=== PATIENT | female | born 1985 | race Caucasian/White ===

== ENCOUNTER 2019-11-20 13:55 | Emergency (ER) | payer OTHER, SELFPAY ==
[2019-11-20 14:22] VITALS: BP 93/67; PULSE 86; RESP 16; TEMP 37.8; O2SAT 100
--- NOTE | 2019-11-20 15:00 | ED.BACK ---
HPI - Back Pain/Injury General Chief Complaint: Back Pain/Injury Stated Complaint: upper back pain Time Seen by Provider: 11/20/19 15:00 Source: patient Mode of arrival: ambulatory Limitations: no limitations History of Present Illness HPI Narrative: Lyssa Kaufman is a 34 yo female with upper back problem for 2-3 days - denies injury. Had a cough 10 days ago that has improved but in past few days upper back was sore with moving and twisting side to side Related Data Home Medications Medication Instructions Recorded Confirmed hydroxyzine HCl 11/20/19 sertraline mg 11/20/19 Allergies Allergy/AdvReac Type Severity Reaction Status Date / Time No Known Allergies Allergy Verified 08/16/14 18:44 Review of Systems Review of Systems: Narrative: CONSTITUTIONAL: Denies fever, chills, sweats. EYES: Denies visual changes, redness, discharge. ENT: Denies rhinorrhea, congestion, sore throat, otalgia. CARDIOVASCULAR: Denies chest pain, palpitations, edema. RESPIRATORY: Denies dyspnea, wheezing, cough GASTROINTESTINAL: Denies abdominal pain, nausea, vomiting, diarrhea. GENITOURINARY: Denies dysuria, hematuria, abnormal discharge SKIN: Denies rash or itching. NEUROLOGIC: Denies numbness, or focal weakness. PSYCHIATRIC: Denies anxiety or depression. Upper back pain PMFSH Family History Family History Other No active medical problems Social History Social History Smoking status: Current every day smoker Alcohol intake: current Comments At time of signature, I agree with nursing past medical, surgical, social and family history. There is no relevant family history pertinent to the presenting complaint. Exam Narrative: Exam Narrative: GENERAL: This is a well-nourished, well-developed patient, in mild distress. HEAD: normocephalic, atraumatic. EYES: Sclera clear/white. Vision is grossly intact. EARS: External ears normal, auditory canals clear and without drainage, TMs normal without perforation. Hearing grossly intact. NOSE: External nose normal without nasal discharge, nares without redness, no rhinorrhea. THROAT: Mucous membranes moist, NECK: Neck supple, CARDIOVASCULAR: Regular rate and rhythm without murmurs, gallops, or rubs. RESPIRATORY: Coarse to auscultation. Breath sounds equal bilaterally. No wheezes, rales, or rhonchi.Mid back tenderness GASTROINTESTINAL: Abdomen soft, SKIN: warm, intact with no suspicious lesions or rash, good texture and turgor. NEURO: awake, alert, and oriented to person, place and time. There were no obvious focal neurologic abnormalities. Steady gait EXTREMITIES: Normal range of motion. 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 Started on high-dose ibuprofen and baclofen, albuterol inhaler to be used 3 times daily as needed Follow-up with PCP Vital Signs Vital signs: Vital Signs Temperature 100.0 F H 11/20/19 14:22 Pulse Rate 86 11/20/19 14:22 Respiratory Rate 16 11/20/19 14:22 Blood Pressure 93/67 L 11/20/19 14:22 Pulse Oximetry 100 11/20/19 14:22 Temperature 100.0 F H 11/20/19 14:22 Pulse Rate 86 11/20/19 14:22 Respiratory Rate 16 11/20/19 14:22 Blood Pressure 93/67 L 11/20/19 14:22 Pulse Oximetry 100 11/20/19 14:22 MDM - Back Pain/Injury Differential Diagnosis Differential diagnosis: Likely other (Costochondritis vs viral syndrome vs thoracic muscle pain) Discharge Plan Discharge Clinical Impression: Acute costochondritis Patient Disposition: Home, Self-Care Condition: Stable
[2019-11-20] MEDS: KETOROLAC 30 MG/ML VIAL (*BKC) IM (15:20)
== END 2019-11-20 15:47 | disposition home or self-care (01) ==
PROVIDERS: Emergency Provider Nurse Practitioner
DX: M94.0 Chondrocostal junction syndrome [Tietze] (principal)
CPT/HCPCS: 96372; 99213; G0463; J1885

== ENCOUNTER 2021-06-10 16:15 | Observation (INO) | payer OTHER, SELFPAY ==
--- NOTE | 2021-06-10 16:15 | OBADM ---
This patient, Lyssa Kaufman, admitted to the OB room OB Post 117 for observation. Patient/family oriented to hospital policies and general routines including ID bracelet, bed and alarms, visiting hours, pain management, procedures, bathroom and other care routines, personal items, smoking policy, room service/diet, and visiting hours. Patient/Family are encouraged to report perceived risks to care and to ask questions if they do not understand what they are told or what they should do.
[2021-06-10 16:43] VITALS: BP 120/81; PULSE 85
[2021-06-10 16:45] VITALS: BMI 28.4
--- NOTE | 2021-06-10 18:20 | PC.NURSE ---
pt states shes feeling better with less pressure in her lower back .
[2021-06-10 18:45] LABS: Add Urine Microscopic? YES; Appearance Urine Clear (Clear); Bilirubin Urine Negative (Negative); Blood Urine 1+ (Negative); Color Urine Colorless (Yellow); Glucose Urine UA Negative (Negative); Ketones Urine Negative (Negative); Leukocyte Esterase Ur Negative LEU/UL (NEGATIVE); Nitrate Urine Negative (Negative); Protein Urine Negative (Negative); RBC Urine 0-2 /hpf (0-2); Squamous Epithelial Cell Urine Occasional /hpf (Few); Urobilinogen Urine Negative mg/dL (<2.0)
[2021-06-10 18:46] LABS: Specific Grav Ur 1.004 (1.001-1.035)
[2021-06-10 19:05] LABS: Fetal Fibronectin Negative
--- NOTE | 2021-06-10 19:10 | PC.NURSE ---
Dr. Brar updated on the pt. Cervical exam is closed. pt states she is feeling better. FFN is negative. Orders received from Dr. Brar to discharge the pt and have her follow up next week if she does not have an appointment scheduled. Orders received to put pt on pelvic rest, take it easy and continue hydrating PO.
--- NOTE | 2021-06-12 15:15 | P.PNOB_ITS ---
OB - Triage/Final Diagnosis Visit Information Comments/Additional reasons for admission: I have assessed the risk for this patient, Lyssa Kaufman, and determined that she would benefit from observation care. Evaluation Laboratory results: Laboratory Tests 06/10/21 06/10/21 18:21 18:21 Urine Color Colorless Urine Appearance Clear Urine pH 7.0 Ur Specific [place] 1.004 Urine Protein Negative Urine Glucose (UA) Negative Urine Ketones Negative Ur Blood (Man) 1+ H Urine Nitrate Negative Urine Bilirubin Negative Urine Urobilinogen Negative Ur Leukocyte Esterase Negative Urine RBC 0-2 Ur Squamous Epith Cells Occasional Fibronectin Negative Final Diagnosis (1) contractions: Code(s): O47.00 - False labor before 37 completed weeks of gestation, unspecified trimester Status: Acute
== END 2021-06-10 19:29 | disposition home or self-care (01) ==
PROVIDERS: Admitting Provider Obstetrics & Gynecology; Visit Provider Obstetrics & Gynecology
DX: O47.00 False labor before 37 completed weeks of gestation, unspecified trimester (principal); Z3A.00 Weeks of gestation of pregnancy not specified
CPT/HCPCS: 81001; 82731; 87086; G0378; G0379

== ENCOUNTER 2021-08-07 17:15 | Observation (INO) | payer OTHER, SELFPAY ==
[2021-08-07 17:21] VITALS: BP 126/82; PULSE 108; RESP 18; TEMP 37.3
[2021-08-07 17:25] VITALS: BMI 31.0
[2021-08-07] MEDS: ONDANSETRON INJ 4 MG/2 ML VIAL IV PUSH (17:55)
[2021-08-07] MEDS: FAMOTIDINE 20 MG/2 ML VIAL IV PUSH (17:56)
[2021-08-07] MEDS: LACTATED RINGERS 1,000 ML 999 ML IV CONT ×2 (17:56→18:41)
[2021-08-07 17:57] LABS: Basophils Percent Auto 0.2 % (0.2-1.2); Eosinophils Percent Auto 0.1 % (0-4.4); Hematocrit 34.7 % (37.0-47.0); Hemoglobin 11.5 g/dL (12.0-15.0); Immature Granulocyte Absolute 0.08 K/mm3 (0.00-0.031); Immature Granulocyte Percent A 0.6 % (0-0.5); Lymphocytes Absolute Auto 0.59 K/mm3 (0.9-3.2); Lymphocytes Percent Auto 4.6 % (18.3-44.2); Mean Corpuscular HGB Conc 33.1 g/dl (32-36); Mean Corpuscular Hemoglobin 29.5 pg (26-34); Mean Platelet Volume 10.6 fl (7.4-10.4); Monocytes Absolute Auto 0.4 K/mm3 (0.1-0.6); Monocytes Percent Auto 3.2 % (2.6-8.5); Neutrophils Absolute Auto 11.7 K/mm3 (1.3-6.7); Neutrophils Percent Auto 91.3 % (45.5-73.1); Platelet Count Result 158 k/mm3 (150-375); Red Cell Distribution Width 13.6 % (11.5-14.5); White Blood Count 12.8 K/mm3 (4.5-10.0)
[2021-08-07 18:10] LABS: Alanine Aminotransferase 14 U/L (4-35); Albumin Level 3.4 g/dL (3.5-5.1); Alkaline Phosphatase 122 U/L (38-126); Anion Gap 8 mmol/L (8-16); Aspartate Amino Transferase 22 U/L (14-36); Bilirubin,Total 0.3 mg/dL (0.2-1.3); Blood Urea Nitrogen 10 mg/dL (7-17); Calcium 7.9 mg/dL (8.4-10.2); Carbon Dioxide 22 mmol/L (22-30); Chloride 104 mmol/L (98-107); Estimated Glomerular Filt Rate > 60; Glucose 80 mg/dL (65-110); Potassium 3.5 mmol/L (3.4-5.0); Sodium 134 mmol/L (137-145)
--- NOTE | 2021-08-07 18:15 | OBADM ---
This patient, Lyssa Kaufman, admitted to the OB room OB Post 116 for observation. Patient/family oriented to hospital policies and general routines including ID bracelet, bed and alarms, visiting hours, pain management, procedures, bathroom and other care routines, personal items, smoking policy, room service/diet, and visiting hours. Patient/Family are encouraged to report perceived risks to care and to ask questions if they do not understand what they are told or what they should do.
[2021-08-07 18:29] VITALS: BP 110/65; PULSE 91; RESP 18; TEMP 37.2
[2021-08-07 19:02] LABS: Add Urine Microscopic? YES; Appearance Urine Clear (Clear); Bacteria Urine Trace /hpf; Bilirubin Urine Negative (Negative); Blood Urine Negative (Negative); Color Urine Yellow (Yellow); Glucose Urine UA Negative (Negative); Ketones Urine 2+ mg/dL (Negative); Leukocyte Esterase Ur 3+ LEU/UL (Negative); Mucus Urine Rare /lpf; Nitrate Urine Negative (Negative); Protein Urine 1+ mg/dL (Negative); Specific Grav Ur 1.019 (1.001-1.035); Squamous Epithelial Cell Urine Moderate /hpf (Few); Urobilinogen Urine Negative mg/dL (<2.0)
--- NOTE | 2021-08-07 19:11 | PC.NURSE ---
1906- called Dr. Brar- elda reviewed. orders received. pt states that she is feeling some contractions. FHT reviewed. will continue to monitor pt and continue with plan of care.
[2021-08-07] MEDS: SODIUM CHLORIDE 0.9% IV 1,000 ML 999 ML IV CONT (19:27)
[2021-08-07 19:28] VITALS: BP 123/79; PULSE 89
[2021-08-07] MEDS: TERBUTALINE SULFATE 1 MG/ML VIAL 0.25 MG SUB-Q (19:28)
--- NOTE | 2021-08-07 21:16 | PC.NURSE ---
2108- called Dr. Brar- updated on pt status. orders received to try ice chips/crackers to see if pt tolerates them. T reviewed. if pt able to keep ice chips and crackers down pt may d/c home with Rx for zofran 4mg po prn. and to f/u in office.
--- NOTE | 2021-08-08 17:52 | P.PNOB_ITS ---
OB - Triage/Final Diagnosis Visit Information Comments/Additional reasons for admission: I have assessed the risk for this patient, Lyssa Kaufman, and determined that she would benefit from observation care. Evaluation Laboratory results: Laboratory Tests 08/07/21 08/07/21 08/07/21 17:51 17:51 18:45 WBC 12.8 H RBC 3.90 L Hgb 11.5 L Hct 34.7 L MCV 89.0 MCH 29.5 MCHC 33.1 RDW 13.6 Plt Count 158 MPV 10.6 H Immature Gran % (Auto) 0.6 H Neut % (Auto) 91.3 H Lymph % (Auto) 4.6 L [place] % (Auto) 3.2 Eos % (Auto) 0.1 Baso % (Auto) 0.2 Lymph # (Auto) 0.59 L [place] # (Auto) 0.4 Eos # (Auto) 0.0 Baso # (Auto) 0.0 Abs Immat Gran (auto) 0.08 H Absolute Neuts (auto) 11.7 H Absolute Nucleated RBC 0.0 Nucleated RBC % 0.0 Sodium 134 L Potassium 3.5 Chloride 104 Carbon Dioxide 22 Anion Gap 8 BUN 10 Creatinine 0.50 L Estim Creat Clear Calc Not Reportable Estimated GFR > 60 Glucose 80 Calcium 7.9 L Total Bilirubin 0.3 AST 22 ALT 14 Alkaline Phosphatase 122 Total Protein 6.0 L Albumin 3.4 L Urine Color Yellow Urine Appearance Clear Urine pH 5.0 Ur Specific [place] 1.019 Urine Protein 1+ H Urine Glucose (UA) Negative Urine Ketones 2+ H Ur Blood (Man) Negative Urine Nitrate Negative Urine Bilirubin Negative Urine Urobilinogen Negative Leukocyte Esterase Rfl 3+ H Urine RBC 6-10 H Urine WBC 4-6 H Ur Squamous Epith Cells Moderate H Urine Bacteria Trace Hyaline Casts 1-2 Urine Mucus Rare Vital signs: Vital Signs - 24 hr 08/07/21 18:29 08/07/21 19:28 Temperature 99 F Pulse Rate 91 89 Respiratory Rate 18 Blood Pressure 110/65 123/79 Final Diagnosis (1) Nausea and vomiting: Code(s): R11.2 - Nausea with vomiting, unspecified Status: Acute (2) contractions: Code(s): O47.00 - False labor before 37 completed weeks of gestation, unspecified trimester Status: Acute
== END 2021-08-07 21:57 | disposition home or self-care (01) ==
PROVIDERS: Admitting Provider Obstetrics & Gynecology; Visit Provider Obstetrics & Gynecology
DX: O21.9 Vomiting of pregnancy, unspecified (principal); O47.03 False labor before 37 completed weeks of gestation, third trimester; Z3A.34 34 weeks gestation of pregnancy
CPT/HCPCS: 36415; 80053; 81001; 85025; 96361; 96365; 96372; 96375; G0378; G0379; J0696; J2405; J3105; J7030; J7120

== ENCOUNTER 2021-09-09 11:10 | Outpatient (CLI) | payer OTHER, SELFPAY ==
[2021-09-09 11:50] LABS: Hematocrit 31.5 % (37.0-47.0); Hemoglobin 10.2 g/dL (12.0-15.0); Mean Corpuscular HGB Conc 32.4 g/dl (32-36); Mean Corpuscular Hemoglobin 28.2 pg (26-34); Mean Platelet Volume 11.2 fl (7.4-10.4); Platelet Count Result 157 k/mm3 (150-375); Red Blood Count 3.62 M/mm3 (4.2-5.4); Red Cell Distribution Width 14.5 % (11.5-14.5); White Blood Count 9.9 K/mm3 (4.5-10.0)
[2021-09-10 11:54] LABS: Rapid Plasma Reagin Non-Reactive (NonReactive)
== END 2021-09-09 11:11 | disposition home or self-care (01) ==
LOC: ANHLAB 11:12
PROVIDERS: Visit Provider Obstetrics & Gynecology
DX: Z34.93 Encounter for supervision of normal pregnancy, unspecified, third trimester (principal); Z3A.00 Weeks of gestation of pregnancy not specified
CPT/HCPCS: 36415; 85027; 86592; 86850; 86900; 86901

== ENCOUNTER 2021-09-10 06:43 | Inpatient (IN) | payer OTHER, SELFPAY ==
--- NOTE | 2021-09-09 16:20 | P.HP_ITS ---
H&P: HPI History of Present Illness Date/Time: 09/09/21 16:21 36-year-old female 7 para 3034 presents at 39 weeks for repeat delivery. She has had 2 vaginal deliveries including 1 and a C- section for twins between the 2 vaginal deliveries. We had discussed potential if she went into labor by this point but she has not and desires to proceed with repeat delivery. records are on the chart only significant abnormality of advanced maternal age for which she did have screening done early which was normal. Also COVID during this for which she had repeat scans and no issues have surfaced. Chief Complaint: Review of Systems Review of Systems: All systems reviewed & are unremarkable except as noted in HPI and below PMFSH Past Medical History Medical History Anxiety Depression Kidney disease Kidney stones Surgical History Surgical History History of Family History Family History Father Diabetes mellitus Mother Cerebrovascular accident Father Hypertension Other No active medical problems Social History Social History Smoking status: Never smoker Alcohol intake: never Substance use: never Gender identity (if verbalized by the patient): Female Sexual Orientation (if Verbalized by the Patient): Straight or Heterosexual Spiritual care concerns: No Meds Home Medications and Allergies Home Medications Medication Instructions Recorded Confirmed Type Daily 1 tablet PO DAILY 08/07/21 08/29/21 History docusate sodium [Colace] 100 mg PO DAILY 08/07/21 08/29/21 History aspirin 81 mg PO BID 08/29/21 08/29/21 History Allergies Allergy/AdvReac Type Severity Reaction Status Date / Time No Known Allergies Allergy Verified 09/02/21 10:59 Exam Const: General: cooperative, healthy appearing and comfortable Resp: Effort & Inspection: normal respiratory effort Auscultation: clear to auscultation bilaterally Cardio: Rate: regular rate Rhythm: regular rhythm GI: Inspection: normal to inspection Auscultation: normal bowel sounds : External Female Exam: normal external appearance Bimanual exam- vagina & uterus: enlarged ( Fundal height 38cm. Vertex presentation. heart tones 140.) Assessment and Plan Assessment and plan (1) 39 weeks gestation of : Code(s): Z3A.39 - 39 weeks gestation of Status: Acute (2) Previous delivery affecting : Code(s): O34.219 - Maternal care for unspecified type scar from previous delivery Status: Acute (3) AMA (advanced maternal age) multigravida 35+: Code(s): O09.529 - Supervision of elderly multigravida, unspecified trimester Status: Acute (4) History of COVID-19: Code(s): Z86.16 - Personal history of COVID-19 Status: Acute Additional Plan proceed with repeat low-transverse section.
[2021-09-10] VITALS (40 sets, daily range): BP systolic 90–139; BP diastolic 50–87; PULSE 66–204; RESP 10–18; TEMP 36.2–36.8; O2SAT 97–100; BMI 32.4
--- NOTE | 2021-09-10 07:06 | LDADM ---
This patient, Lyssa Kaufman, was admitted to Labor/Delivery/Recovery 120 on 09/10/21 at 06:43. Plans for labor, pain management and were discussed with patient. Patient/family oriented to hospital policies and general routines including ID bracelet, bed and alarms, visiting hours, pain management, procedures, bathroom and other care routines, personal items, smoking policy, room service/diet and guest tray routines, infant security routines, and visiting hours. Patient/Family are encouraged to report perceived risks to care and to ask questions if they do not understand what they are told or what they should do. See OBIX for further documentation.
--- NOTE | 2021-09-10 07:06 | WPDANESEPPF ---
Anes - Initial Pre Proc Eval Procedure: Operation Date: 09/10/21 09:00 Proposed Procedures p Repeat Section - Jagdish Dash MD Date/Time: 09/10/21 07:06 Surgeon: Jagdish Dash MD Pre Op Diagnosis: C/S Patient Data Age: 36 Gender: F Height: Weight: Allergies Allergy/AdvReac Type Severity Reaction Status Date / Time No Known Allergies Allergy Verified 09/02/21 10:59 Home Medications Medication Instructions Recorded Confirmed Type Daily 1 tablet PO DAILY 08/07/21 08/29/21 History docusate sodium [Colace] 100 mg PO DAILY 08/07/21 08/29/21 History aspirin 81 mg PO BID 08/29/21 08/29/21 History Patient hx anesthesia problems: none Family hx anesthesia problems: none Results Review: All pre-operative results and documents have been reviewed as part of the pre-operative evaluation. [facility] Past Medical History Medical History Anxiety Depression Kidney disease Kidney stones Surgical History Surgical History History of Family History Family History Father Diabetes mellitus Mother Cerebrovascular accident Father Hypertension Other No active medical problems Social History Social History Smoking status: Never smoker Alcohol intake: never Substance use: never Gender identity (if verbalized by the patient): Female Sexual Orientation (if Verbalized by the Patient): Straight or Heterosexual Spiritual care concerns: No Anes - Eval Final PreProcedure Day of Procedure 09/10/21 07:06 Patient weight: obese Heart: regular rate and rhythm Lungs: clear to auscultation Airway: Mallampati scale class 1 Neurological: alert and oriented Last oral intake: >/= 8 hours ASA classification: II Emergent: no Anesthetic plan: proceed Anesthesia type and monitoring: regional spinal and standard monitoring Results Review: All pre-operative results and documents have been reviewed as part of the pre-operative evaluation. Informed Consent: The patient's anesthetic plan and its attendant risks and benefits were discussed with the patient/family/POA. Questions were solicited and answers provided to the satisfaction of the patient/family/POA.
[2021-09-10] MEDS: LACTATED RINGERS 1,000 ML 999 ML IV CONT ×2 (07:28→08:09)
--- NOTE | 2021-09-10 08:23 | WPDHPUPDATE1 ---
History and Physical Update Update Date/Time: 09/10/21 08:23 History and Physical has been reviewed, including an updated exam of the patient. There are NO changes in the patient's condition. Risks, benefits, and alternatives have been discussed and questions answered. Patient agrees to proceed with procedure.
[2021-09-10] MEDS: KETOROLAC 30 MG/ML VIAL (*BKC) IV PUSH ×2 (09:14→15:45)
--- NOTE | 2021-09-10 09:29 | PM.OBPRVD ---
OB - Delivery Note Procedure Procedure: Procedures Operation Date: 09/10/21 09:00 <No data on this case meets the specified criteria> Events: Previous Delivery Induction method: None Delivery monitor: External FHT Route of delivery: Prior to decision for section, ACOG/SM labor guidelines were considered and discussed with the patient and staff. Decision made to proceed with the section.: No Laceration Description: None Specimen: No Quantitative Blood Loss (ml): 685 Anesthesia type: Spinal Disposition: Floor Narrative: Patient prepped and draped in usual manner for this procedure. Pfannenstiel incision was carried which was then carried down to the fascia. Fascia was extended bilaterally the length of the skin incision and then sharply and bluntly dissected away from the rectus muscles. Peritoneum was entered bladder flap was developed. Uterus scored and vertex was delivered without difficulty. Placenta removed as well and membranes and clots were removed prior to uterine closure. This was accomplished using 0 Monocryl in a running interlocking manner with good approximation hemostasis noted. Uterus was turned the abdomen get the gutters were cleared of serosanguineous fluid and clots and uterine incision was again inspected. There was a minimal amount of oozing from the adhesions in this area and Eugenio was placed with good response. All subfascial tissue was noted be hemostatic and the fascia was then approximated using 0 plain from left angle to the midline and the right angle to midline with good approximation noted. Subcutaneous tissue was irrigated cauterized a bleeding scan and plain was used to approximate the space. [place] were then used and the patient was sent to recovery room in stable condition. Baby Weeks of gestation at delivery: 39 Infant gender: Male Weight (pounds): 7 Weight (ounces): 12 presentation: vertex Placenta delivery description: Manual Removal Cord Vessel Description: 3 Vessels score one minute: 9 score five minutes: 9 AMG Delivery Billing Delivery Delivery: Delivery Charge
[2021-09-10] MEDS: OXYTOCIN 30 UNITS/NS 500 ML 30 UNITS/500 ML BAG 125 UNITS IV CONT (09:57)
[2021-09-10 11:14] LABS: HIV 1/2 Ab P24 Ag Result Negative (Negative)
--- NOTE | 2021-09-10 11:50 | OBPPTRN ---
Patient transferred to post room # 285 via stretcher. Support person present. Oriented to unit, room, information board, rooming in, admission packet and security measures. Patient verbalizes understanding.
[2021-09-10] MEDS: DEXTROSE 5%/0.45% SOD CHL 1,000 ML 125 ML IV CONT (14:20)
--- NOTE | 2021-09-10 15:31 | PC.NURSE ---
1430 - Breast pump provided due to mothers request to pump and feed. Reviewed information regarding pump care, hand washing, nipple care and pumping 8 times in 24 hours (1-2 at night) for 10-15 minutes. Discussed she may want to pump after feedings or between feedings. Collection and storage of breastmilk per mom and baby guide. Encouraged mom to place skin to skin, breast massage and use hand expression and/or a breast pump in a relaxing atmosphere. Reviewed recording pumping schedule on the feeding sheet. Referred to the visual handout along with the mom and baby guide as a resource and when to call a provider. Reported to primary RN.
[2021-09-11 00:09] VITALS: BP 131/60; PULSE 97; RESP 18; TEMP 36.4; O2SAT 98
[2021-09-11] MEDS: KETOROLAC 30 MG/ML VIAL (*BKC) IV PUSH (03:29)
[2021-09-11] MEDS: SIMETHICONE 80 MG TAB.CHEW PO ×4 (03:33→23:15)
[2021-09-11 03:45] VITALS: BP 122/70; PULSE 98; RESP 18; TEMP 36.7; O2SAT 98
[2021-09-11 05:34] LABS: Basophils Percent Auto 0.2 % (0.2-1.2); Eosinophils Percent Auto 0.4 % (0-4.4); Hematocrit 24.4 % (37.0-47.0); Hemoglobin 7.6 g/dL (12.0-15.0); Immature Granulocyte Absolute 0.18 K/mm3 (0.00-0.031); Immature Granulocyte Percent A 1.6 % (0-0.5); Lymphocytes Absolute Auto 1.51 K/mm3 (0.9-3.2); Lymphocytes Percent Auto 13.8 % (18.3-44.2); Mean Corpuscular HGB Conc 31.1 g/dl (32-36); Mean Corpuscular Hemoglobin 27.9 pg (26-34); Mean Corpuscular Volume 89.7 fl (80-100); Mean Platelet Volume 11.7 fl (7.4-10.4); Monocytes Absolute Auto 0.6 K/mm3 (0.1-0.6); Monocytes Percent Auto 5.6 % (2.6-8.5); Neutrophils Absolute Auto 8.6 K/mm3 (1.3-6.7); Neutrophils Percent Auto 78.4 % (45.5-73.1); Platelet Count Result 151 k/mm3 (150-375); Red Blood Count 2.72 M/mm3 (4.2-5.4); Red Cell Distribution Width 14.7 % (11.5-14.5); White Blood Count 10.9 K/mm3 (4.5-10.0)
[2021-09-11] MEDS: HYDROcodone/acetaminophen (*CRX) 5-325 MG TABLET 1 TAB PO ×6 (05:54→23:15)
[2021-09-11 07:25] VITALS: BP 111/60; PULSE 97; RESP 22; TEMP 36.2; O2SAT 95
[2021-09-11] MEDS: DOCUSATE SODIUM 100 MG CAPSULE PO ×2 (08:28→16:20)
[2021-09-11] MEDS: POLYSACCHARIDE IRON COMPLEX 150 MG CAPSULE PO ×2 (08:29→16:19)
--- NOTE | 2021-09-11 08:36 | P.PNOB_ITS ---
OB - PN: Subj Subjective Date/time seen: 09/11/21 08:36 36-year-old female presents status post repeat . Tolerating regular diet on oral pain medication and has been up in chair are ready. States she feels better after the then the last that she had an overall has no concerns at this time. OB - PN: Obj Data Labs CBC & Chem 7: 09/11/21 03:32 Labs: Laboratory Results - last 24 hr 09/10/21 09/11/21 10:15 03:32 WBC 10.9 H RBC 2.72 L Hgb 7.6 L Hct 24.4 L MCV 89.7 MCH 27.9 MCHC 31.1 L RDW 14.7 H Plt Count 151 MPV 11.7 H Immature Gran % (Auto) 1.6 H Neut % (Auto) 78.4 H Lymph % (Auto) 13.[address] [place] % (Auto) 5.6 Eos % (Auto) 0.4 Baso % (Auto) 0.2 Lymph # (Auto) 1.51 [place] # (Auto) 0.6 Eos # (Auto) 0.0 Baso # (Auto) 0.0 Abs Immat Gran (auto) 0.18 H Absolute Neuts (auto) 8.6 H Absolute Nucleated RBC 0.0 Nucleated RBC % 0.0 HIV 1&2 Ab/P24 Ag 4thGn Negative OB - PN A/P Plan day: 1 Plan: routine care Time Spent With Patient Time: Total time spent is greater than 50% in coordination of care (as documented) at patient's floor/unit and/or counseling patient: Exam Narrative: Positive bowel sounds soft. Incision dressing is dry.
--- NOTE | 2021-09-11 08:49 | PC.NURSE ---
On 09/11/21, the student, Alta Major, provided care and completed [facility] documentation on this patient. I have reviewed the student's documentation and agree with the findings.
[2021-09-11] MEDS: IBUPROFEN 600 MG TABLET PO ×3 (10:00→23:15)
--- NOTE | 2021-09-11 12:39 | WPDANLDPN2 ---
Anes-Prog Note L&D Date/Time: 09/11/21 12:39 Comfortable throughout: section Neuraxial method: spinal Epidural/Spinal procedure site: clean & non-tender Neuro status: Neuro function grossly intact. Cardiovascular status: normal Respiratory status: normal Airway patency: baseline Mental status: baseline Post-Op hydration status: normal Vital Signs: Last Vital Signs Temp 97.2 F L 09/11/21 07:25 Pulse 97 09/11/21 07:25 Resp 22 H 09/11/21 07:25 BP 111/60 09/11/21 07:25 Pulse Ox 95 09/11/21 07:25 Pain score (VAS): 3 I/O: Intake & Output 09/10/21 09/11/21 09/11/21 23:59 07:59 15:59 Intake Total 400 600 Output Total 150 1900 300 Balance 250 -1300 -300 Post-procedural complaints: none Patient feedback: Patient satisfied with anesthetic care.
--- NOTE | 2021-09-11 12:40 | WPDANLDNPN2 ---
Anes-Prog Note L&D-Neuraxial Date/Time: 09/11/21 12:40 Neuraxial medications: intrathecal PF morphine Opiod-related complaints: pruritis mild, no treatment Patient feedback: Patient satisfied with post-operative pain management.
[2021-09-11] MEDS: MULTIVIT/MIN/PREN/FOL AC/IRON TABLET 1 TAB PO (16:33)
[2021-09-11 19:51] VITALS: BP 124/79; PULSE 104; RESP 18; TEMP 37.1; O2SAT 98
[2021-09-12] MEDS: HYDROcodone/acetaminophen (*CRX) 10-325 MG TABLET 1 TAB PO ×3 (03:42→22:02)
[2021-09-12] MEDS: SIMETHICONE 80 MG TAB.CHEW PO ×2 (03:42→22:03)
[2021-09-12] MEDS: TETANUS,DIPHTHERIA,AC PERTUSSIS ADULT (0.5 ML) BOOSTRIX IM (08:16)
[2021-09-12] MEDS: POLYSACCHARIDE IRON COMPLEX 150 MG CAPSULE PO ×2 (08:17→16:40)
[2021-09-12] MEDS: HYDROcodone/acetaminophen (*CRX) 5-325 MG TABLET 1 TAB PO ×2 (08:18→16:42)
[2021-09-12] MEDS: IBUPROFEN 600 MG TABLET PO ×3 (08:18→23:15)
[2021-09-12] MEDS: MULTIVIT/MIN/PREN/FOL AC/IRON TABLET 1 TAB PO (08:18)
[2021-09-12] MEDS: DOCUSATE SODIUM 100 MG CAPSULE PO ×2 (08:18→16:41)
[2021-09-12 08:20] VITALS: BP 135/84; PULSE 87; RESP 18; TEMP 36.6; O2SAT 99
--- NOTE | 2021-09-12 09:40 | P.DS_ITS ---
DS: Admitting Diagnosis Discharge Date [id number] Admitting Diagnosis OB - DS: Summary OB Procedures : None OB Procedures Intrapartum: OB Procedures: : None Peripartum Data Procedures: Procedures Operation Date: 09/10/21 09:00 Actual Procedure Side Surgeon p Repeat Section Jagdish Dash MD Time Spent with Patient Time attestation: Total time spent providing and/or coordinating discharge services: Discharge Plan Discharge Discharging Clinician: Jagdish Dash Patient Disposition: Home, Self-Care Activity: as tolerated Diet: as tolerated Wound Care Instructions: incision open to air Discharge Instructions: Return to office Thursday or Thursday for staple removal. Patient Instructions: Antibiotic Form Stand Alone Forms: General Discharge Information Follow-up/Referrals: Jagdish Dash MD [Physician] - 3 Weeks Discharge Medications: New hydrocodone-acetaminophen 5-325 mg Tablet 1 tablet PO Q3H Qty: 30 RF: 0 ibuprofen 600 mg Tablet 600 mg PO Q6H PRN (Reason: Cramping) Qty: 30 RF: 0 Continued docusate sodium [Colace] 100 mg Capsule 100 mg PO DAILY RF: 0 Daily 1 tablet PO DAILY RF: 0 Discontinued aspirin 81 mg Tablet 81 mg PO BID RF: 0 Date of admission: 09/10/21 06:43 Primary Care Provider: PHYSICIAN,MICROPHONE OPERATOR Admitting Provider: Jagdish Dash Attending physician on admission: Jagdish Dash Condition: Stable
[2021-09-12 19:51] VITALS: BP 137/70; PULSE 110; RESP 18; TEMP 36.5; O2SAT 98
[2021-09-13] MEDS: HYDROcodone/acetaminophen (*CRX) 10-325 MG TABLET 1 TAB PO (04:24)
--- NOTE | 2021-09-13 07:22 | PC.NURSE ---
Patient viewed the discharge video Mother & Baby Care, The First Two Weeks . Patient was given the opportunity and encouraged to ask questions. Patient verbalized understanding of information shared and has been given the mother/baby guide for home reference.
[2021-09-13 08:00] VITALS: BP 123/83; PULSE 101; RESP 18; TEMP 36.4; O2SAT 100
[2021-09-13] MEDS: POLYSACCHARIDE IRON COMPLEX 150 MG CAPSULE PO (08:02)
[2021-09-13] MEDS: MULTIVIT/MIN/PREN/FOL AC/IRON TABLET 1 TAB PO (08:03)
[2021-09-13] MEDS: DOCUSATE SODIUM 100 MG CAPSULE PO (08:03)
[2021-09-13] MEDS: IBUPROFEN 600 MG TABLET PO ×2 (08:03→15:48)
[2021-09-13] MEDS: HYDROcodone/acetaminophen (*CRX) 5-325 MG TABLET 1 TAB PO ×3 (08:04→15:48)
[2021-09-16 10:44] VITALS: BP 130/81; PULSE 96; RESP 20; TEMP 36.8; O2SAT 100
--- NOTE | 2021-09-18 09:32 | PM.OBDSVD ---
DS: Admitting Diagnosis Discharge Date 09/13/21 Admitting Diagnosis OB - DS: Summary OB Procedures : None OB Procedures Intrapartum: OB Procedures: : None Peripartum Data Procedures: Procedures Operation Date: 09/10/21 09:00 Actual Procedure Side Surgeon p Repeat Section Jagdish Dash MD Time Spent with Patient Time attestation: Total time spent providing and/or coordinating discharge services: Discharge Plan Discharge Consulting providers: Maykel Marquez Discharging Clinician: Jagdish Dash Patient Disposition: Home, Self-Care Activity: as tolerated Diet: as tolerated Wound Care Instructions: incision open to air Discharge Instructions: Education: Mom and Baby Guide Given to: Mother Follow-Up: Call your delivering provider's office for an appointment to be seen in: 3 weeks Mom and baby should come to the [facility] for the follow-up appointment. Appointment Date/Time: September 16, 2021 at 10:00 am What to expect at your follow-up visit: Physical Assessment Call [phone] if you are unable to keep your appointment time. BREAST CARE: * Wear a snug supportive bra. * For engorgement discomfort: Bottle Feeding: * May apply ice packs ABDOMINAL INCISION: (if applicable) * Allow incision to air dry * Do NOT use lotions for powders on your incision * When showering, allow soap and water to run over the incision, but do not wash incision EPISIOTOMY/PERINEAL CARE: * Until bleeding stops, use your adriana bottle after urinating * Change your pad frequently throughout the day * No tub baths until seen by your physician - You may shower ACTIVITY: * Rest as much as possible. * Do not exercise or lift anything heavier than your baby (such as laundry or other children.) * Avoid stairs or driving as much as possible. * Do not put anything into the vagina. No douching, tampons, or sexual activity until seen by physician. NOTIFY PHYSICIAN IF YOU HAVE ANY QUESTIONS OR IF ANY OF THE FOLLOWING SYMPTOMS OCCUR: * If your incision becomes red, swollen, or more painful than what you have experienced in the hospital. * If your vaginal bleeding becomes foul smelling. * If your vaginal bleeding becomes more heavy than a period or if your bleeding changes from pink to bright red. However, you may pass an occasional walnut-sized clot once or twice for the first week . * If you experience a sharp, shooting pain in you calves. * If you discover a hard, reddened area on your breast or if you experience flu-like symptoms. DIET: * Eat regular, well-balanced meals. * Drink plenty of fluids daily. If , drink to thirst.Return to office Thursday or Thursday for staple removal. Stand Alone Forms: General Discharge Information Follow-up/Referrals: Jagdish Dash MD [Physician] - 3 Weeks Discharge Medications: New hydrocodone-acetaminophen 5-325 mg Tablet 1 tablet PO Q3H Qty: 30 RF: 0 ibuprofen 600 mg Tablet 600 mg PO Q6H PRN (Reason: Cramping) Qty: 30 RF: 0 Continued docusate sodium [Colace] 100 mg Capsule 100 mg PO DAILY RF: 0 Daily 1 tablet PO DAILY RF: 0 Discontinued aspirin 81 mg Tablet 81 mg PO BID RF: 0 Date of admission: 09/10/21 06:43 Primary Care Provider: PHYSICIAN,MOISTURE CONDITIONER OPERATOR Admitting Provider: Jagdish Dash Attending physician on admission: Jagdish Dash Condition: Stable
== END 2021-09-13 18:10 | disposition home or self-care (01) | DRG 540 ==
LOC: ANHLDR 06:49 → ANHOB2 11:53
PROVIDERS: Admitting Provider Obstetrics & Gynecology; Visit Provider Obstetrics & Gynecology
PROC: 10D00Z1 Extraction of Products of Conception, Low, Open Approach (ICD-10-PCS; CPT 59514; principal; 2021-09-10 09:00)
DX: O34.211 Maternal care for low transverse scar from previous cesarean delivery (principal); Z37.0 Single live birth; Z3A.39 39 weeks gestation of pregnancy
CPT/HCPCS: 36415; 85025; 86703; 90715; A9270; G0432; J0131; J1100; J1885; J2274; J2405; J2590; J7120

== ENCOUNTER 2022-10-09 09:29 | Outpatient (CLI) | payer OTHER, SELFPAY ==
[2022-10-09 11:12] LABS: Thyroid Stimulating Hormone 0.627 uIU/mL (0.465-4.680)
== END 2022-10-09 09:30 | disposition home or self-care (01) ==
LOC: ANHLAB 09:30
PROVIDERS: Visit Provider Student in an Organized Health Care Education/Training Program
DX: R53.83 Other fatigue (principal)
CPT/HCPCS: 36415; 84443

== ENCOUNTER 2022-11-17 13:06 | Outpatient (CLI) | payer OTHER, SELFPAY ==
[2022-11-17 13:59] LABS: Hemoglobin 11.9 g/dL (12.0-15.0)
== END 2022-11-17 13:07 | disposition home or self-care (01) ==
LOC: ANHSURGERY 13:10
PROVIDERS: PCP Internal Medicine Infectious Disease; Visit Provider Student in an Organized Health Care Education/Training Program
DX: N93.9 Abnormal uterine and vaginal bleeding, unspecified (principal); Z01.818 Encounter for other preprocedural examination
CPT/HCPCS: 36415; 85014; 85018

== ENCOUNTER 2022-11-21 02:16 | Day surgery (SDC) | payer OTHER, SELFPAY ==
--- NOTE | 2022-11-12 11:26 | PC.NURSE ---
PRE-OP INSTRUCTIONS, PLEASE READ CAREFULLY Report to the Outpatient Waiting Room, entrance under the green pavilion located off [facility], at time _1130_ on date _11/21/22_. Planned Procedure Time: _1:30 PM_. Time changes happen often and if your time is changed the preop area will call you the afternoon before. - You and your visitor will be asked to self-screen and do not enter if you have any COVID symptoms. - A mask is optional within the hospital at this time. Patients may have clear liquids (water, carbonated beverages, clear teas, apple juice) until 3 hours prior to surgery (1030 AM) with a maximum of 20 ounces. - No food from midnight until time of surgery Take the following medications with a SIP of water the morning of surgery: _FLEXERIL IF NEEDED_ DO NOT STOP ANY OF YOUR OTHER PRESCRIPTION MEDICATIONS PRIOR TO SURGERY ?EXCEPT THE FOLLOWING Medications to discontinue per physician N/A Date to take last dose Please no make-up, nail malaysian, hairspray, perfume, deodorant, or body powder the day of surgery. No jewelry (including any body piercings) or valuables the day of surgery, leave them at home. Please take a shower or bath the night before, or the morning of, surgery with an antibacterial soap. Wear comfortable, loose fitting clothing. - Jewelry must be removed prior to entering the operating room. Rings and piercings that are not removed may be cut off. - The hospital will not accept responsibility for valuables. - Please leave all valuables, including medications, at home the day of surgery. If you are going home after surgery, a licensed local combination truck driver must drive you home. - NO public transportation without another adult if you receive anesthesia. - We recommend that an adult stay with you for 24 hours following discharge. - We also recommend that you do not drive, make important decision, drink alcoholic beverages, or take any drugs that were not prescribed by your health care provider for at least 24 hours after your discharge time. Follow any additional instructions given to you from your surgeon. If you or anyone in your household have experienced Covid symptoms in the past week, please notify your surgeon or the nurse liaison at the phone number below for possible testing. Telephone instructions given to _PATIENT_and asked if any additional questions and then verbalized understanding. Patient advised to call surgeon office or pre surgery nurse liaison [phone] if any additional questions.
--- NOTE | 2022-11-21 09:37 | PM.IMHP ---
H&P: HPI History of Present Illness Date/Time: 11/21/22 09:37 Chief Complaint: abnormal uterine bleeding Narrative: ?37-year-old female who presents for follow-up after complaint of irregular menses.? Patient states she was having heavy and prolonged cycles.? Patient was also reporting some painful cramping.? Patient had a pelvic ultrasound which showed a thickened endometrial lining.? Patient is requesting D and C for evaluation. Review of Systems Cardiovascular: Cardiovascular: Denies chest pain, Denies leg edema, Denies palpitations, Denies dyspnea and Denies dyspnea on exertion Respiratory: Respiratory: Denies cough, Denies dyspnea and Denies dyspnea on exertion Gastrointestinal: Gastrointestinal: Denies abdominal pain, Denies constipation, Denies diarrhea, Denies nausea and Denies vomiting Genitourinary: Genitourinary: Denies hematuria, Denies urinary frequency, Denies dysuria, Denies pelvic pain, Denies urinary incontinence and Denies vaginal discharge Neurologic: Reports system reviewed and no additional complaints, except as documented Psychiatric: Psychiatric: Reports no additional psychiatric complaints Endocrine: Endocrine: Denies palpitations PMFSH Past Medical History Medical History Anxiety Depression Kidney disease Kidney stones Surgical History Surgical History Delivery by section (09/10/21) rpt c/s History of (10/25/14) primary c/s Family History Family History Father Diabetes mellitus Mother Cerebrovascular accident Father Hypertension Other No active medical problems Social History Social History Smoking status: Former smoker Tobacco type: cigarettes Second hand tobacco smoke exposure: No Additional smoking assessment comments: STATES 6 GIGS/DAY OFF/ON 10YRS QUIT 2014 Alcohol intake: never Substance use: current Substance use type: marijuana Last use: END October 2022 Living arrangements: with family Additional living arrangements comments: LIVES WITH SIGNIFICANT OTHER & CHILDREN Gender identity (if verbalized by the patient): Female Sexual Orientation (if Verbalized by the Patient): Straight or Heterosexual Spiritual care concerns: No Meds Home Medications and Allergies Home Medications Medication Instructions Recorded Confirmed Type cyclobenzaprine 10 mg tablet 10 mg PO TID PRN Muscle Spasm 10/08/22 11/12/22 History Allergies Allergy/AdvReac Type Severity Reaction Status Date / Time No Known Allergies Allergy Verified 11/12/22 11:12 Exam Const: General: no acute distress Eyes: EOM: EOMs intact bilaterally Neck: Neck: supple Thyroid: thyroid normal Chest: Breast/axilla inspection: normal inspection of the breasts Breast/axilla palpation: normal palpation of the breasts, normal palpation of the axillae and no axillary lymphadenopathy Resp: Effort & Inspection: normal respiratory effort Auscultation: clear to auscultation bilaterally Cardio: Rate: regular rate Rhythm: regular rhythm GI: Inspection: non-distended GI Palp: Yes Soft to palpation, No Tenderness to palpation present (GI) and No Guarding due to palpation present (GI) Auscultation: normal bowel sounds : General: No bladder normal to palpation External Female Exam: normal external appearance Speculum Exam - Vagina: normal vaginal discharge and No vaginal bleeding Speculum Exam - Cervix: nontender Bimanual exam- vagina & uterus: No bladder normal to palpation and No Cervical tenderness present OB/external & speculum: No vaginal bleeding Skin: General skin exam: normal color and no rashes or lesions noted Neuro: Cognition (Neuro): normal cognition Speech: normal speech Extrem: General: normal to inspection and no edema P
--- NOTE | 2022-11-21 09:38 | WPDHPUPDATE1 ---
History and Physical Update Update Date/Time: 11/21/22 09:38 History and Physical has been reviewed, including an updated exam of the patient. There are NO changes in the patient's condition. Risks, benefits, and alternatives have been discussed and questions answered. Patient agrees to proceed with procedure.
--- NOTE | 2022-11-21 10:23 | P.PNAN_ITS ---
Anes - Initial Pre Proc Eval Procedure: Operation Date: 11/21/22 13:30 Proposed Procedures p Hysteroscopy with Dilation and Curettage - Abimael Ware MD Date/Time: 11/21/22 10:23 Surgeon: Abimael Ware MD Pre Op Diagnosis: Abnormal Uterine Bleeding Patient Data Age: 37 Gender: F Height: Weight: Allergies Allergy/AdvReac Type Severity Reaction Status Date / Time No Known Allergies Allergy Verified 11/21/22 12:24 Home Medications Medication Instructions Recorded Confirmed Type cyclobenzaprine 10 mg tablet 10 mg PO TID PRN Muscle Spasm 10/08/22 11/12/22 History Patient hx anesthesia problems: none Family hx anesthesia problems: none Results Review: All pre-operative results and documents have been reviewed as part of the pre- operative evaluation. [facility] Past Medical History Medical History (Updated 11/21/22 @ 10:23 by Max Camacho DO) Anxiety Depression Kidney disease Kidney stones PTSD (post-traumatic stress disorder) Surgical History Surgical History Delivery by section (09/10/21) rpt c/s History of (10/25/14) primary c/s Family History Family History Father Diabetes mellitus Mother Cerebrovascular accident Father Hypertension Other No active medical problems Social History Social History Smoking status: Former smoker Tobacco type: cigarettes Second hand tobacco smoke exposure: No Additional smoking assessment comments: STATES 6 GIGS/DAY OFF/ON 10YRS QUIT 2014 Alcohol intake: never Substance use: current Substance use type: marijuana Last use: END OF OCTOBER 2022 Living arrangements: with family Additional living arrangements comments: LIVES WITH SIGNIFICANT OTHER & CHILDREN Gender identity (if verbalized by the patient): Female Sexual Orientation (if Verbalized by the Patient): Straight or Heterosexual Spiritual care concerns: No Anes - Eval Final PreProcedure Day of Procedure 11/21/22 10:23 Patient weight: obese Heart: regular rate and rhythm Lungs: clear to auscultation Airway: Mallampati scale class II Neurological: alert and oriented Last oral intake: >/= 8 hours ASA classification: II Emergent: no Anesthetic plan: proceed Anesthesia type and monitoring: general GIVS and standard monitoring Results Review: All pre-operative results and documents have been reviewed as part of the pre- operative evaluation. Informed Consent: The patient's anesthetic plan and its attendant risks and benefits were discussed with the patient/family/POA. Questions were solicited and answers provided to the satisfaction of the patient/family/POA.
[2022-11-21 12:07] VITALS: BP 115/74; PULSE 84; RESP 18; TEMP 36.4; O2SAT 100
[2022-11-21] MEDS: ACETAMINOPHEN 500 MG TABLET 1000 MG PO (12:29)
[2022-11-21] MEDS: LACTATED RINGERS 1,000 ML 30 ML IV CONT (12:30)
[2022-11-21] MEDS: LIDOCAINE HCL 1% LOCAL INJ 20 ML VIAL 10 ML INFILTRATE (13:03)
[2022-11-21 13:10] VITALS: BMI 28.2
--- NOTE | 2022-11-21 13:26 | W.PM.PROC2 ---
Procedure Note - Detailed Date of Procedure 11/21/22 Pre-op Diagnosis Abnormal Uterine Bleeding Post-op Diagnosis Same Procedure Performed paracervical block hysteroscopy dilation & curettage Surgeon Abimael Ware MD Anesthesia General Indications abnormal uterine bleeding Findings normal appearing intrauterine cavity. Normal tubal ostia bilaterally. globally thickened endometrium Description of Procedure Lyssa Kaufman presents for hysteroscopy D&C for AUB. She was counseled as to the indications, risks, benefits, and alternatives to surgery, with the risks including bleeding, infection, damage to surrounding organs, VTE, and complications of anesthesia. Her verbal and written consent was obtained. PROCEDURE: The patient was taken to the OR and general anesthesia induced. She was prepped and draped in Kashif stirrups with support of the back and bilateral lower extremities. I/O catheterization performed of the bladder. The above findings were noted. Infiltration with 1% lidocaine at the 3 and 9 o'clock cervical positions was performed. A single tooth tenaculum was placed on the anterior lip of the cervix. The cervix was dilated to accommodate the hysteroscope. Hysteroscopy, using a normal saline medium, was performed and showed the above findings. Sharp uterine curettage was then performed and tissue placed on Telfa. The tenaculum was removed and hemostasis was observed. The patient tolerated the procedure well. Sponge, lap, and needle counts were correct. The patient was taken to the recovery room in stable condition. Estimated Blood Loss 10 Urine Output 200 Drains No Packing No Pathology Yes (endometrial curettings ) Complications No immediate complications Condition Stable Disposition PACU [facility] Billing Surgery - Charge Forward: Surgery Billing
[2022-11-21 13:31] VITALS: BP 102/62; PULSE 79; RESP 16; O2SAT 99
[2022-11-21 14:00] VITALS: BP 116/67; PULSE 77; RESP 16; O2SAT 99
[2022-11-21 14:30] VITALS: BP 123/69; PULSE 79; RESP 16
== END 2022-11-21 14:49 | disposition home or self-care (01) ==
PROVIDERS: PCP Internal Medicine Infectious Disease; Visit Provider Student in an Organized Health Care Education/Training Program
PROC: 0U5B8ZZ Destruction of Endometrium, Via Natural or Artificial Opening Endoscopic (ICD-10-PCS; CPT 58563; principal; 2022-11-21 13:30)
DX: N93.9 Abnormal uterine and vaginal bleeding, unspecified (principal); F12.90 Cannabis use, unspecified, uncomplicated; E66.9 Obesity, unspecified; Z68.28 Body mass index [BMI] 28.0-28.9, adult; Z87.891 Personal history of nicotine dependence
CPT/HCPCS: 58558; 88305; A9270; J2250; J2704; J3010; J7120

== ENCOUNTER 2022-12-29 12:24 | Outpatient (CLI) | payer OTHER, SELFPAY ==
[2022-12-29 13:05] LABS: Beta HCG Quantitative < 2.39 mIU/ML
== END 2022-12-29 12:25 | disposition home or self-care (01) ==
LOC: ANHLAB 12:25
PROVIDERS: PCP Internal Medicine Infectious Disease; Visit Provider Student in an Organized Health Care Education/Training Program
DX: Z30.430 Encounter for insertion of intrauterine contraceptive device (principal)
CPT/HCPCS: 36415; 84702

== ENCOUNTER 2024-08-13 08:39 | Emergency (ER) | payer OTHER, SELFPAY ==
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
--- OUTSIDE RECORDS SUMMARY | 2024-08-13 08:42 | XMS_ITS | Referral Summary ---
Author Organization [facility] Address [address] [place] [address] Care Team Providers Care Railroad Track Mechanic Name Role Phone Ewelina Juarez NP Primary Care Provider [phone] Encounters Date Type Department Care Team Description 07/24/2024 6:36 AM SWING DRIVER - 07/24/2024 9:27 AM SWING DRIVER Emergency [facility] Emergency Department [address] [place] [address] Malaise (Primary Dx) Discharge Disposition: Discharge to home or self care from Last 3 Months Allergies No known active allergies Medications No known medications Active Problems No known active problems Social History Tobacco Use Types Packs/Day Years Used Date Smoking Tobacco: Never Assessed Personal Safety Answer Date Recorded Have you ever been in or are you currently in a harmful physical or emotional relationship or is someone making you feel afraid or unsafe? Denies 07/24/2024 Comments Unknown Sex and Gender Information Value Date Recorded Sex Assigned at Not on file Legal Sex Female 8:21 PM SWING DRIVER Gender Identity Not on file Sexual Orientation Not on file Last Filed Vital Signs Vital Sign Reading Time Taken Comments Blood Pressure 122/93 07/24/2024 7:15 AM SWING DRIVER Pulse 124 07/24/2024 7:15 AM SWING DRIVER Temperature 36.9 C (98.5 F) 07/24/2024 7:10 AM SWING DRIVER Respiratory Rate 18 07/24/2024 7:10 AM SWING DRIVER Oxygen Saturation 98% 07/24/2024 7:15 AM SWING DRIVER Inhaled Oxygen Concentration - - Weight 79.4 kg (175 lb) 07/24/2024 6:24 AM SWING DRIVER Height 160 cm (5' 2.99 ) 07/24/2024 7:51 AM SWING DRIVER Body Mass Index 31.01 07/24/2024 6:24 AM SWING DRIVER Plan of Treatment Not on file Procedures Procedure Name Priority Date/Time Associated Diagnosis Comments EGFR STAT 07/24/2024 7:42 AM SWING DRIVER DIFFERENTIAL AUTO STAT 07/24/2024 7:4 2 AM SWING DRIVER CBC WITH AUTO DIFFERENTIAL STAT 07/24/2024 7:42 AM SWING DRIVER COMPREHENSIVE METABOLIC PANEL STAT 07/24/2024 7:42 AM SWING DRIVER RESPIRATORY PATHOGEN PANEL STAT 07/24/2024 6:31 AM SWING DRIVER from Last 3 Months Results * eGFR (07/24/2024 7:42 AM SWING DRIVER) eGFR >90 >=60 mL/min/1. 73 m2 Comment: Interpretive Data Reference Interval Normal >/= 90 mL/min/1.73m2 Mildly decreased* 60 - 89 mL/min/1.73m2 Mildly to moderately decreased 45 - 59 mL/min/1.73m2 Moderately to severely decreased 30 - 44 mL/min/1.73m2 Severely decreased 15 - 29 mL/min/1.73m2 Kidney Failure < 15 mL/min/1.73m2 *Relative to young adult level Estimated glomerular filtration rate is determined by the 2020 CKD-EPI equation recommended by the National Kidney Foundation (A Unifying Approach to GFR Estimation: Recommendations of the NKF-ASK Task Force on Reassessing the Inclusion of Race in Diagnosing Kidney Disease, JASN 2020). The CKD-EPI equation should not be used for patients with unstable renal function and has not been validated in children and those over 70. Current interpretive data was last reviewed 2021. Blood 07/24/2024 7:42 AM SWING DRIVER 07/24/2024 7:53 AM SWING DRIVER us Travis Jerome [facility] BLOOD ORDERABLES Final Result [facility] Department [place] [address] * Differential, auto (07/24/2024 7:42 AM SWING DRIVER) Neutrophil abs 6.1 1.5 - 6.5 K/cumm Imm gran abs 0.0 0.0 - 0.1 K/cumm [facility] Lymphocyte abs 1.8 0.8 - 3.3 K/cumm [facility] Monocyte abs 0.6 0.2 - 0.8 K/cumm [facility] Eosinophil abs 0.0 0.0 - 0.5 K/cumm [facility] Basophil abs 0.0 0.0 - 0.1 K/cumm [facility] Neutrophil pct 71.3 % [facility] Comment: Interpretive Data Percent cell count reference ranges are not reported, since discordance with absolute values may lead to misinterpretation of CBC data. Current Interpretive Data was last revised on 2017. Imm gran pct 0.2 % [facility] Comment: Interpretive Data Percent cell count reference ranges are not reported, since discordance with absolute values may lead to misinterpretation of CBC data. Current Interpretive Data was last revised on 2017. Lymphocyte pct 20.9 % [facility] Comment: Interpretive Data Percent cell count reference ranges are not reported, since discordance with absolute values may lead to misinterpretation of CBC data. Current Interpretive Data was last revised on 2017. Monocyte pct 6.8 % [facility] Comment: Interpretive Data Percent cell count reference ranges are not reported, since discordance with absolute values may lead to misinterpretation of CBC data. Current Interpretive Data was last revised on 2017. Eosinophil pct 0.4 % [facility] Comment: Interpretive Data Percent cell count reference ranges are not reported, since discordance with absolute values may lead to misinterpretation of CBC data. Current Interpretive Data was last revised on 2017. Basophil pct 0.4 % [facility] Comment: Interpretive Data Percent cell count reference ranges are not reported, since discordance with absolute values may lead to misinterpretation of CBC data. Current Interpretive Data was last revised on 2017. Blood 07/24/2024 7:42 AM SWING DRIVER 07/24/2024 7:53 AM SWING DRIVER Travis Jerome [facility] BLOOD ORDERABLES Final Result [facility] [place] [address] * CBC with auto differential (07/24/2024 7:42 AM SWING DRIVER) [facility] WBC 8.5 3.8 - 9.9 K/cumm Hgb 14.7 11.9 - 15.5 g/dL [facility] Hct 43.1 35.6 - 45.5 % [facility] Plt 284 150 - 400 K/cumm [facility] MPV 10.6 9.1 - 12.3 fL [facility] RBC 4.94 3.90 - 5.20 M/cumm [facility] MCV 87.2 81.3 - 96.4 fL [facility] MCH 29.8 27.1 - 33.3 pg [facility] MCHC 34.1 32.3 - 35.7 g/dL [facility] RDW CV 13.3 11.1 - 14.9 % [facility] RDW SD 42.1 35.7 - 48.1 fL [facility] NRBC abs 0.00 0.00 - 0.01 K/cumm [facility] Blood 07/24/2024 7:42 AM SWING DRIVER 07/24/2024 7:53 AM SWING DRIVER Travis Jerome [facility] BLOOD ORDERABLES Final Result [facility] Department [place] [address] * (ABNORMAL) Comprehensive metabolic panel (07/24/2024 7:42 AM SWING DRIVER) [facility] Sodium 141 135 - 145 mmol/L Potassium, pl 3.9 3.3 - 4.9 mmol/L [facility] Comment:Hemolyzed; Potassium value may be falsely elevated by as much as 0.3-0.5 mmol/L. Suggest redraw and reanalysis. Chloride 102 97 - 110 mmol/L [facility] CO2 25 22 - 32 mmol/L [facility] Anion gap 14 2 - 15 mmol/L [facility] BUN 7 6 - 25 mg/dL [facility] Creatinine 0.80 0.60 - 1.10 mg/dL [facility] Glucose 98 70 - 199 mg/dL [facility] Comment: Interpretive Data Fasting glucose >/= 126 mg/dl is diagnostic for diabetes. Fasting is defined as no caloric intake for at least 8 hours. Fasting glucose between 100 mg/dl to 125 mg/dl is diagnostic of prediabetes. In a patient with classic symptoms of hyperglycemia or hyperglycemic crisis, a random glucose >/= 200 mg/dl is diagnostic for diabetes. In the absence of unequivocal hyperglycemia, results should be confirmed by repeat testing. The classification and Diagnosis of Diabetes Diabetes Care 2021; 46: S19-S40. Current interpretive data was last revised 2022. Calcium 10.2 8.5 - 10.3 mg/dL [facility] Bilirubin, total 0.5 0.1 - 1.2 mg/dL [facility] Protein, pl 8.3 6.5 - 8.5 g/dL [facility] Albumin 4.7 3.5 - 5.0 g/dL [facility] Alk phos 90 40 - 130 Units/L [facility] ALT 51(H) 7 - 45 Units/L [facility] AST 38 10 - 45 Units/L [facility] Comment:Hemolyzed; result ma y be falsely elevated Blood 07/24/2024 7:42 AM SWING DRIVER 07/24/2024 7:53 AM SWING DRIVER Travis Jerome [facility] BLOOD ORDERABLES Final Result [facility] Department [place] [address] * Respiratory pathogen panel Nasopharyngeal (07/24/2024 6:31 AM SWING DRIVER) Pathologist [facility] Influenza A RNA Not Detected Not Detected Influenza B RNA Not Detected Not Detected [facility] RSV RNA Not Detected Not Detected [facility] COVID-19 RNA Not Detected Not Detected [facility] Coronavirus 229E RNA Not Detected Not Detected [facility] Coronavirus HKU1 RNA Not Detected Not Detected [facility] Coronavirus NL63 RNA Not Detected Not Detected [facility] Coronavirus OC43 RNA Not Detected Not Detected [facility] Adenovirus DNA Not Detected Not Detected [facility] Metapneumovirus RNA Not Detected Not Detected [facility] Rhinovirus/Enterov irus RNA Not Detected Not Detected [facility] Parainfluenza 1 RNA Not Detected Not Detected [facility] Parainfluenza 2 RNA Not Detected Not Detected [facility] Parainfluenza 3 RNA Not Detected Not Detected [facility] Parainfluenza 4 RNA Not Detected Not Detected [facility] B. pertussis DNA Not Detected Not Detected [facility] B. parapertussis DNA Not Detected Not Detected [facility] C. pneumoniae DNA Not Detected Not Detected [facility] M. pneumoniae DNA Not Detected Not Detected [facility] Nasopharyngeal 07/24/2024 6: 31 AM SWING DRIVER 07/24/2024 7:02 AM SWING DRIVER Narrative [facility] - 07/24/2024 8:17 AM SWING DRIVER Is the Patient experiencing symptoms consistent with COVID?->Yes Surveillance testing for transplant patient?->No Interpretive Data The [employer] FilmArray Respiratory Panel (RP2.1) assay is a multiplexed real-time PCR based nucleic acid test capable of simultaneous qualitative detection and identification of multiple respiratory viral and bacterial nucleic acids, including SARS Coronavirus 2 (the causative agent of COVID-19). The following bacteria, viruses and virus subtypes can be identified using the FilmArray RP2.1 assay: Bordetella pertussis, Bordetella parapertussis, Chlamydia pneumoniae, Mycoplasma pneumoniae, Adenovirus, SARS Coronavirus 2, seasonal coronaviruses (Coronavirus HKU1, Coronavirus NL63, Coronavirus 229E, and Coronavirus OC43), Influenza A, Influenza A subtype H1, Influenza A subtype H3, Influenza A subtype 2009 H1, Influenza B, Metapneumovirus, Parainfluenza 1, Parainfluenza 2, Parainfluenza 3, Parainfluenza 4, RSV, Rhinovirus/Enterovirus. Due to the genetic similarity between human Rhinovirus and Enterovirus, the FilmArray RP2.1 assay cannot reliably differentiate them. Coronavirus OC43 may cross-react with some isolates of Coronavirus HKU1. A dual positive result may be due to cross-reactivity or may indicate a co- infection. The detection and identification of specific viral and bacterial nucleic acids from individuals exhibiting signs and symptoms of a respiratory infection aids in the diagnosis of respiratory infection if used in conjunction with other clinical and epidemiological information. The results of this test should not be used as the sole basis for diagnosis, treatment, or other management decisions. Negative results in the setting of a respiratory illness may be due to infection with pathogens that are not detected by this test. Positive results do not rule out infection/co-infection with other organisms. The agent(s) detected by the FilmArray RP2.1 may not be the definite cause of disease. Additional testing (lab, imaging, etc.) may be necessary when evaluating a patient with possible respiratory tract infection. The FilmArray RP2.1 assay has FDA clearance for testing of PLANT TECHNICIAN swabs. The performance of additional specimen types has been assessed by the performing laboratory. The performance characteristics of this assay have been determined by [facility]. Current interpretive data was last revised on 22. Brian Grullon MD LAB MICROBIOLOGY - [facility] ORDERABLES Final Result [facility] Department [place] [address] from Last 3 Months Insurance [facility] Care Teams Railroad Track Mechanic Relationship Specialty Start Date End Date Ewelina Juarez NP [address] [place] [address] PCP - General Family Medicine 07/24/24
--- OUTSIDE RECORDS SUMMARY | 2024-08-13 08:42 | XMS_ITS | Clinical Summary ---
Author Organization [facility] al Address [address] [place] [address] Care Team Providers Care District Recruiter Name Role Phone Ewelina Juarez NP Primary Care Provider [phone] Allergies No known active allergies Medications No known medications Active Problems No known active problems Encounters Date Type Department Care Team Description 07/24/2024 6:36 AM MANAGER OF MERCHANDISING - 07/24/2024 9:27 AM MANAGER OF MERCHANDISING Emergency [facility] Emergency Department [address] [place] [id number] Malaise (Primary Dx) Discharge Disposition: Discharge to home or self care from Last 3 Months Social History Tobacco Use Types Packs/Day Years [...] on file Legal Sex Female 8:21 PM MANAGER OF MERCHANDISING Gender Identity Not on file Sexual Orientation Not on file Obstetrics History Last Filed Vital Signs Vital Sign Reading Time Taken Comments Blood Pressure 122/93 07/24/2024 7:15 AM MANAGER OF MERCHANDISING Pulse 124 07/24/2024 7:15 AM MANAGER OF MERCHANDISING Temperature 36.9 C (98.5 F) 07/24/2024 7:10 AM MANAGER OF MERCHANDISING Respiratory Rate 18 07/24/2024 7:10 AM MANAGER OF MERCHANDISING Oxygen Saturation 98% 07/24/2024 7:15 AM MANAGER OF MERCHANDISING Inhaled Oxygen Concentration - - Weight 79.4 kg (175 lb) 07/24/2024 6:24 AM MANAGER OF MERCHANDISING Height 160 cm (5' 2.99 ) 07/24/2024 7:51 AM MANAGER OF MERCHANDISING Body Mass Index 31.01 07/24/2024 6:24 AM MANAGER OF MERCHANDISING Plan of Treatment Health Maintenance Due Date Last Done Comments Cervical Cancer Screening 1986 Depression Screening 1986 Hepatitis C Screening 1986 DTaP/Tdap/Td Vaccine (1 - Tdap) 1997 Varicella Vaccines (1 of 2 - 13+ 2-dose series) 09/09/1999 Hepatitis B Screening 2004 Regular Well Visit/Exam 18-64 2004 Influenza Vaccine (#1) 2024 HPV Vaccines Aged Out No longer eligi ble based on patient's age to complete this topic Pneumococcal vaccine <65 Aged Out No longer eligible based on patient's age to complete this topic Procedures Procedure Name Priority Date/Time Associated Diagnosis Comments EGFR STAT 07/24/2024 7:42 AM MANAGER OF MERCHANDISING DIFFERENTIAL AUTO STAT 07/24/2024 7:4 2 AM MANAGER OF MERCHANDISING CBC WITH AUTO DIFFERENTIAL STAT 07/24/2024 7:42 AM MANAGER OF MERCHANDISING COMPREHENSIVE METABOLIC PANEL STAT 07/24/2024 7:42 AM MANAGER OF MERCHANDISING RESPIRATORY PATHOGEN PANEL STAT 07/24/2024 6:31 AM MANAGER OF MERCHANDISING from Last 3 Months Results * eGFR (07/24/2024 7:42 AM MANAGER OF MERCHANDISING) eGFR >90 >=60 mL/min/1. 73 m2 Comment: [...] last reviewed 2021. Blood 07/24/2024 7:42 AM MANAGER OF MERCHANDISING 07/24/2024 7:53 AM MANAGER OF MERCHANDISING Travis Jerome [facility] LAB BLOOD ORDERABLES Final Result [facility] [place] [address] * Differential, auto (07/24/2024 7:42 AM MANAGER OF MERCHANDISING) Neutrophil abs 6.1 1.5 - 6.5 K/cumm Imm gran abs 0.0 0.0 - 0.1 K/cumm [facility] Lymphocyte abs 1.8 0.8 - 3.3 K/cumm [facility] Monocyte abs 0.6 0.2 - 0.8 K/cumm [facility] Eosinophil abs 0.0 0.0 - 0.5 K/cumm [facility] Basophil abs 0.0 0.0 - 0.1 K/cumm [facility] Neutrophil pct 71.3 % [facility] Comment: Interpretive Data Percent cell count reference ranges are not reported, since discordance with absolute values may lead to misinterpretation of CBC data. Current Interpretive Data was last revised on 2017. Imm gran pct 0.2 % [facility] Comment: Interpretive Data Percent cell count reference ranges are not reported, since discordance with absolute values may lead to misinterpretation of CBC data. Current Interpretive Data was last revised on 2017. Lymphocyte pct 20.9 % [facility] Comment: Interpretive Data Percent cell count reference ranges are not reported, since discordance with absolute values may lead to misinterpretation of CBC data. Current Interpretive Data was last revised on 2017. Monocyte pct 6.8 % [facility] Comment: Interpretive Data Percent cell count reference ranges are not reported, since discordance with absolute values may lead to misinterpretation of CBC data. Current Interpretive Data was last revised on 2017. Eosinophil pct 0.4 % [facility] Comment: Interpretive Data Percent cell count reference ranges are not reported, since discordance with absolute values may lead to misinterpretation of CBC data. Current Interpretive Data was last revised on 2017. Basophil pct 0.4 % [facility] Comment: Interpretive Data Percent cell count reference ranges are not reported, since discordance with absolute values may lead to misinterpretation of CBC data. Current Interpretive Data was last revised on 2017. Blood 07/24/2024 7:42 AM MANAGER OF MERCHANDISING 07/24/2024 7:53 AM MANAGER OF MERCHANDISING Travis Jerome [facility] LAB BLOOD ORDERABLES Final Result [facility] [place] [address] * CBC with auto differential (07/24/2024 7:42 AM MANAGER OF MERCHANDISING) WBC 8.5 3.8 - 9.9 K/cumm Hgb 14.7 11.9 - 15.5 g/dL [facility] Hct 43.1 35.6 - 45.5 % [facility] Plt 284 150 - 400 K/cumm [facility] MPV 10.6 9.1 - 12.3 fL [facility] RBC 4.94 3.90 - 5.20 M/cumm [facility] MCV 87.2 81.3 - 96.4 fL [facility] MCH 29.8 27.1 - 33.3 pg [facility] MCHC 34.1 32.3 - 35.7 g/dL [facility] RDW CV 13.3 11.1 - 14.9 % [facility] RDW SD 42.1 35.7 - 48.1 fL [facility] NRBC abs 0.00 0.00 - 0.01 K/cumm [facility] Blood 07/24/2024 7:42 AM MANAGER OF MERCHANDISING 07/24/2024 7:53 AM MANAGER OF MERCHANDISING us Travis Jerome [facility] LAB BLOOD ORDERABLES Final Result [facility] [place] [address] * (ABNORMAL) Comprehensive metabolic panel (07/24/2024 7:42 AM MANAGER OF MERCHANDISING) Sodium 141 135 - 145 mmol/L Potassium, pl 3.9 3.3 - 4.9 mmol/L [facility] Comment:Hemolyzed; Potassium value may be falsely elevated by as much as 0.3-0.5 mmol/L. Suggest redraw and reanalysis. Chloride 102 97 - 110 mmol/L [facility] CO2 25 22 - 32 mmol/L [facility] Anion gap 14 2 - 15 mmol/L [facility] BUN 7 6 - 25 mg/dL [facility] Creatinine 0.80 0.60 - 1.10 mg/dL [facility] Glucose 98 70 - 199 mg/dL [facility] Comment: Interpretive Data Fasting glucose >/= 126 [...] 2022. Calcium 10.2 8.5 - 10.3 mg/dL [facility] Bilirubin, total 0.5 0.1 - 1.2 mg/dL [facility] Protein, pl 8.3 6.5 - 8.5 g/dL [facility] Albumin 4.7 3.5 - 5.0 g/dL [facility] Alk phos 90 40 - 130 Units/L [facility] ALT 51(H) 7 - 45 Units/L [facility] AST 38 10 - 45 Units/L [facility] Comment:Hemolyzed; result ma y be falsely elevated Blood 07/24/2024 7:42 AM MANAGER OF MERCHANDISING 07/24/2024 7:53 AM MANAGER OF MERCHANDISING Travisphil Mccormick Queenie [facility] LAB BLOOD ORDERABLES Final Result [facility] [place] [address] * Respiratory pathogen panel Nasopharyngeal (07/24/2024 6:31 AM MANAGER OF MERCHANDISING) Pathologist [facility] Influenza A RNA Not Detected Not Detected Influenza B RNA Not Detected Not Detected [facility] RSV RNA Not Detected Not Detected [facility] COVID-19 RNA Not Detected Not Detected [facility] Coronavirus 229E RNA Not Detected Not Detected [facility] Coronavirus HKU1 RNA Not Detected Not Detected [facility] Coronavirus NL63 RNA Not Detected Not Detected [facility] Coronavirus OC43 RNA Not Detected Not Detected [facility] Adenovirus DNA Not Detected Not Detected [facility] Metapneumovirus RNA Not Detected Not Detected [facility] Rhinovirus/Enterov irus RNA Not Detected Not Detected [facility] Parainfluenza 1 RNA Not Detected Not Detected [facility] Parainfluenza 2 RNA Not Detected Not Detected [facility] Parainfluenza 3 RNA Not Detected Not Detected [facility] Parainfluenza 4 RNA Not Detected Not Detected [facility] B. pertussis DNA Not Detected Not Detected [facility] B. parapertussis DNA Not Detected Not Detected [facility] C. pneumoniae DNA Not Detected Not Detected [facility] M. pneumoniae DNA Not Detected Not Detected [facility] Nasopharyngeal 07/24/2024 6: 31 AM MANAGER OF MERCHANDISING 07/24/2024 7:02 AM MANAGER OF MERCHANDISING Narrative [facility] - 07/24/2024 8:17 AM MANAGER OF MERCHANDISING Is the Patient experiencing symptoms consistent with COVID?->Yes Surveillance testing for transplant patient?->No Interpretive Data The [employer] FilmArray Respiratory Panel (RP2.1) assay is a [...] assay has FDA clearance for testing of CUSTOMER SERVICE ADMINISTRATOR swabs. The performance of additional specimen types has been assessed by the performing laboratory. The performance characteristics of this assay have been determined by [facility] Infectious Disease [facility]. Current interpretive data was last revised on 22. Brian Grullon MD LAB MICROBIOLOGY - [facility] ORDERABLES Final Result [facility] [place] [address] from Last 3 Months Insurance [facility] Care Teams District Recruiter Relationship Specialty Start Date End Date Ewelina Juarez NP [address] [place] [address] PCP - General Family Medicine 07/24/24
--- OUTSIDE RECORDS SUMMARY | 2024-08-13 08:42 | XMS_ITS | Referral Summary ---
Author Organization [facility] [employer] Address [address] [place] [address] Care Team Providers Care Checker In Name Role Phone Ignacio Campos MD Primary Care Provider [phone] Source Comments [facility] [employer],non-owned Affiliates and Associated Physician Practices is amultiple site organization consisting of ambulatory clinics and hospital sitesin [place], [place], [place] and [place]. This disclosure is being madepursuant to the Care Everywhere program and may not contain all information available regarding this patient. Last updated 18.[facility] [employer] Allergies No known active allergies Medications * [...] 04/17/2021 Assessment & Plan (04/17/2021 12:45 PM DEAF INTERPRETER): The obstetric risks of advanced maternal age [...] antepartum Assessment & Plan (04/17/2021 12:50 PM DEAF INTERPRETER): We discussed the patients choices regarding elective [...] your office would like the support of [facility] at delivery for TOLAC please let us know and we can facilitate delivery at [facility] Former tobacco use 04/17/2021 Assessment & Plan (04/17/2021 12:54 PM DEAF INTERPRETER): Tobacco is associated with an increased risk of low weight, abruptio placenta, delivery and sudden infant syndrome. Was a risk factor in her previous delivery[ies]. 1. Would benefit from --discuss at next visit History of delivery, currently 10/06/2011 Assessment & Plan (04/17/2021 12:52 PM DEAF INTERPRETER): We discussed some of the previous risk [...] been 17 OH PC supplementation. Administration of 83-cwtesvz-ftmyydkqvbls caproate (17-OHPC) weekly, starting from 16-18 weeks to 36 weeks has shown to reduce the risk of premature delivery. 17-OHPC has been found to decrease the risk of delivery at 37, 35, and 32 weeks is high risk patients. The shelter data on the impact of progesterone exposure [...] warrants in person evaluation by the primary staffing assistant, with treatment as indicated--even treatment of bacterial vaginosis Insomnia Assessment & Plan (04/17/2021 12:56 PM DEAF INTERPRETER): Was previously prescribed hydroxyzine for sleep help. Concerned about taking medication during . Has a counselor through [facility]. At risk for mood deterioration. Recommendations 1. Talk to counselor monthly 2. IF mood deterioration may benefit from consultation with Psychiatrist and Clinical Pharmacist for medication recommendations History of placental abruption Assessment & Plan (04/17/2021 1:46 PM DEAF INTERPRETER): Recommendations 1. Serial growth 2. Weekly BPP [...] HEP B VACCINE ADOL/ADULT 2 DOSE 04/16/2009 Social History Tobacco Use Types Packs/Day Years Used Date Smoking Tobacco: Former Cigarettes 2 - 2014 Smokeless Tobacco: Former Quit: 09/07/2011 [...] 74.8 kg (165 lb) 05/29/2021 10:31 AM DEAF INTERPRETER Height 160 cm (5' 3 ) 10/06/2011 8:00 AM CDT Body Mass Index 29.23 10/06/2011 8:00 AM CDT Plan of Treatment Not on file Procedures Procedure Name Priority Date/Time Associated Diagnosis Comments GLUCOSE CHALLENGE Today 10/20/2011 11: 05 AM CDT from Last 3 Months or Most Recently Relevant to Health Maintenance Results * GLUCOSE CHALLENGE (10/20/2011 11:05 AM CDT) Glucose Challenge 98 mg/dl [facility] Glucose Challenge Time 1105 [facility] BLOOD SPECIMEN / Unknown 10/20/2011 11:05 AM CDT 10/20/2011 11:37 AM CDT Javan Martinez MD LAB - CHEMISTRY [place] [facility] [address] [place] [address] from Last 3 Months or Most Recently Relevant to Health Maintenance Care Teams Checker In Relationship Specialty Start Date End Date Ignacio Campos MD [address] [id number] PCP - General 10/06/11
--- OUTSIDE RECORDS SUMMARY | 2024-08-13 08:42 | XMS_ITS | Patient Health Summary ---
Author Organization [facility] Address [address] [place] [address] Care Team Providers Care Senior It Business Analyst Name Role Phone Ignacio Campos MD Primary Care Provider [phone] Note [address] [facility],non-owned Affiliates and Associated Physician Practices is amultiple site organization consisting of ambulatory clinics and hospital sitesin [place], [place], [place] and [place]. This disclosure is being madepursuant to the Care Everywhere program and may not contain all information available regarding this patient. Last updated 18.[facility] Allergies No known active allergies Medications * Be aware that medications may not be up to date on this document. Alwaysverify current medications with the patient. * Probiotic Product (PROBIOTIC DAILY PO) * Vit-Fe Fumarate-FA ( VITAMIN) 28-0.8 MG tablet Take 1 tablet by mouth once daily * acetaminophen (TYLENOL) 325 MG tablet Take 325 mg by mouth every 4 hours as needed for Fever or Pain Maximum allowable Acetaminophen amount = 4 Grams (4000 mg) / 24 hours. * aspirin (ASPIRIN) 81 MG chew tablet(Started 04/17/2021) Take 2 (two) tablets by mouth once daily Reasons: preeclampsia prevention 11 refills by 04/17/2022 * Progesterone 100 MG capsule Take 100 mg by mouth at bedtime * Progesterone 200 MG capsule(Started 05/24/2021) Take 1 (one) capsule by mouth at bedtime * docusate sodium (COLACE) 100 MG capsule(Started 05/29/2021) Take 1 (one) capsule by mouth 2 times daily Reasons: Constipation 5 refills by 05/29/2022 * polyethylene glycol 3350 (MIRALAX) 17 GM/SCOOP powder(Started 05/29/2021) Take 17 (seventeen) g by mouth once daily Reasons: Constipation 5 refills by 05/29/2022 Active Problems Problem Noted Date Diagnosed Date Encounter for anatomic survey 08/02/2021 Group B Streptococcus urinar y tract infection affecting in second trimester 06/04/2021 COVID-19 affecting in second trimester 04/30/2021 AMA (advanced maternal age) multigravida 35+, second trimester 04/17/2021 Previous delivery, antepartum Former tobacco use 04/17/2021 History of delivery, currently 10/06/2011 Insomnia History of placental abruption Resolved Problems Problem Noted Date Diagnosed Date Resolved Date 30 weeks gestation of 05/08/2021 07/16/2021 20 weeks gestation of 04/17/2021 05/08/2021 Supervision of other high-risk 10/06/2011 04/17/2021 History of Placental abruption 10/06/2011 04/17/2021 Anxiety 10/06/2011 04/17/2021 Benign essential hypertensio n in obstetric context 10/06/2011 11/06/2011 Immunizations * HEP A VACCINE, ADULT(Given 04/16/2009) * HEP B VACCINE ADOL/ADULT 2 DOSE(Given 04/16/2009) Social History Tobacco Use Types Packs/Day Years [...] 74.8 kg (165 lb) 05/29/2021 10:31 AM STUDIO HAND Height 160 cm (5' 3 ) 10/06/2011 8:00 AM CDT Body Mass Index 29.23 10/06/2011 8:00 AM CDT Procedures * BIOPHYSICAL PROFILE W NST(Performed 09/03/2021) Performed for COVID-19 affecting in second trimester (HCC), History of placental abruption, Previous delivery, antepartum (HCC), AMA (advanced maternal age) multigravida 35+, second trimester (HCC), History of delivery, currently (HCC) * BIOPHYSICAL PROFILE W NST(Performed 08/27/2021) Performed for COVID-19 affecting in second trimester (HCC), History of placental abruption, Previous delivery, antepartum (HCC), AMA (advanced maternal age) multigravida 35+, second trimester (HCC), History of delivery, currently (HCC) * BIOPHYSICAL PROFILE W NST(Performed 08/20/2021) Performed for COVID-19 affecting in second trimester (HCC), History of placental abruption, Previous delivery, antepartum (HCC), AMA (advanced maternal age) multigravida 35+, second trimester (HCC), History of delivery, currently (HCC) * BIOPHYSICAL PROFILE W NST(Performed 08/13/2021) Performed for COVID-19 affecting in second trimester (HCC), History of placental abruption, Previous delivery, antepartum (HCC), AMA (advanced maternal age) multigravida 35+, second trimester (HCC), History of delivery, currently (HCC) * BIOPHYSICAL PROFILE W NST(Performed 08/06/2021) Performed for COVID-19 affecting in second trimester (HCC), History of placental abruption, Previous delivery, antepartum (HCC), AMA (advanced maternal age) multigravida 35+, second trimester (HCC), History of delivery, currently (HCC) * BIOPHYSICAL PROFILE W NST(Performed 07/30/2021) Performed for COVID-19 affecting in second trimester (HCC), History of placental abruption, Previous delivery, antepartum (HCC), AMA (advanced maternal age) multigravida 35+, second trimester (HCC), History of delivery, currently (HCC) * BIOPHYSICAL PROFILE W NST(Performed 07/23/2021) Performed for COVID-19 affecting in second trimester (HCC), History of placental abruption, Previous delivery, antepartum (HCC), AMA (advanced maternal age) multigravida 35+, second trimester (HCC), History of delivery, currently (HCC) * SONOGRAM - COMPLETE(Performed 07/16/2021) Performed for COVID-19 affecting in second trimester (HCC), History of placental abruption, Previous delivery, antepartum (HCC), AMA (advanced maternal age) multigravida 35+, second trimester (HCC), History of delivery, currently (HCC) * BIOPHYSICAL PROFILE WO NST(Performed 07/09/2021) Performed for COVID-19 affecting in second trimester (HCC), History of placental abruption, Previous delivery, antepartum (HCC), AMA (advanced maternal age) multigravida 35+, second trimester (HCC), History of delivery, currently (HCC) * BIOPHYSICAL PROFILE WO NST(Performed 07/02/2021) Performed for COVID-19 affecting in second trimester (HCC), History of placental abruption, Previous delivery, antepartum (HCC), AMA (advanced maternal age) multigravida 35+, second trimester (HCC), History of delivery, currently (HCC) * SONOGRAM - COMPLETE(Performed 06/26/2021) Performed for 28 weeks gestation of ([facility]), History of delivery, currently (HCC), History of placental abruption, AMA (advanced maternal age) multigravida 35+, second trimester (HCC) * SONOGRAM - COMPLETE(Performed 06/14/2021) Performed for History of delivery, currently (HCC), AMA (advanced maternal age) multigravida 35+, second trimester (HCC), Previous delivery, antepartum (HCC), History of placental abruption * URINALYSIS W/MICROSCOPIC NO CULTURE(Performed 05/29/2021) * CULTURE URINE(Performed 05/29/2021) * SONOGRAM - COMPLETE(Performed 05/29/2021) Performed for COVID-19 affecting in second trimester (HCC), AMA (advanced maternal age) multigravida 35+, second trimester (HCC), Previous delivery, antepartum (HCC), History of delivery, currently ([facility]), 24 weeks gestation of (HCC), History of placental abruption * SONOGRAM - COMPLETE(Performed 05/14/2021) Performed for COVID-19 affecting in second trimester (HCC), AMA (advanced maternal age) multigravida 35+, second trimester (HCC), Previous delivery, antepartum (HCC), Former tobacco use, 22 weeks gestation of (HCC), History of placental abruption, Insomnia, unspecified type, History of delivery, currently (HCC) * SONOGRAM - COMPLETE(Performed 04/30/2021) Performed for AMA (advanced maternal age) multigravida 35+, second trimester (HCC), Previous delivery, antepartum (HCC), 19 weeks gestation of (HCC), History of delivery, currently (HCC) * SONOGRAM - COMPLETE(Performed 04/17/2021) Performed for 18 weeks gestation of (HCC), History of delivery, currently (HCC), History of placental abruption * CULTURE AEROBIC(Performed 03/09/2014) * LAB RESULTS ORDER(Performed 03/10/2012) * IMAGING/RADIOLOGY/XRAY RESULTS ORDER(Performed 03/10/2012) * GLUCOSE PROTEIN KETONE URINE - POINT OF CAR(Performed 11/24/2011) * GLUCOSE PROTEIN KETONE URINE - POINT OF CAR(Performed 11/10/2011) * SONOGRAM - TRANSVAGINAL(Performed 10/28/2011) Performed for History of delivery, currently (HCC) * HEPATITIS B SURFACE ANTIGEN W RFLX CONFIRMATION(Performed 10/20/2011) * RUBELLA ANTIBODY IGG(Performed 10/20/2011) * RPR(Performed 10/20/2011) * CBC W AUTO DIFFERENTIAL(Performed 10/20/2011) * GLUCOSE CHALLENGE(Performed 10/20/2011) * GLUCOSE PROTEIN KETONE URINE - POINT OF CAR(Performed 10/20/2011) * SONOGRAM - COMPLETE(Performed 10/06/2011) * GLUCOSE PROTEIN KETONE URINE - POINT OF CAR(Performed 10/06/2011) Results * BIOPHYSICAL PROFILE W NST (09/03/2021 10:29 AM CDT) Only the most recent of7 resultswithin the time period is included. Anatomical Region Laterality Modality Other 09/03/2021 10:2 9 AM CDT Narrative 09/03/2021 11:43 AM CDT [facility] PHONE: FAX: Radha. Name: RIGOBERTO GLYNN. No: [id number] Study Date: 09/03/2021 10:29am , Age: 04 1985, 35 Pregnancies: 7, Para 3, Ab 1 Height: 63 in Weight: 148 lb LMP: 12/10/2020 GA by LMP: 38w1d GA by Base: 38w1d JEREMIE: 09/16/2021 GA Selected: 38w1d (From [facility]) JEREMIE: 09/16/2021 Referring MD: Jagdish Dsah MD Civil Engineer In Training: Breanna Dueñas RDMS CPT4: 09998 BMI: 26.21 Hist/Ind: G1: partial placental separation at 28 weeks, 38 week IOL (weekly BPP per 04/17/21 ultrasound report due to prior abruption) G2: suspected cervical insufficiency with sPTB around 29 weeks G5: 34w6d CD of twins, both SGA COVID+ on 04/27/21 AMAEMELIA NIPT Heart Rate: 159 bpm Amniotic Fluid Index: 13.8cm (07.3-23.8) Q1: 4.1cm Q2: 4.1cm Q3: 3.3cm Q4: 2.3cm Biophysical Profile: 03/17 Breathin Tone: 2 NST: 2 Movement: 2 AFV: 2 EVAL, PLACENTA Presentation: cephalic Placenta: anterior Heart Rate: 159 bpm Amniotic Fluid Volume: normal CLINICAL SUMMARY Study Number: 16 The FHR baseline was 150 bpm during today's reactive NST. The FHR variability was moderate and no decelerations lasting more than 30 seconds were detected. IMPRESSION: 1) Sung gestation, 38w1d 2) The amniotic fluid volume is within normal limits 3) Reassuring biophysical profile RECOMMEND: Close maternal movement monitoring while awaiting admission for delivery Thank you for allowing us the opportunity to care for your patient. Katarzyna Bojorquez MD <Electronic Signature> 09/03/2021 11:43am Katarzyna Bojorquez MD [facility] ORDERABLES * SONOGRAM - COMPLETE (07/16/2021 10:36 AM STUDIO HAND) Only the most recent of8 resultswithin the time period is included. Anatomical Region Laterality Modality Other 07/16/2021 10:3 6 AM STUDIO HAND Narrative 07/16/2021 11:34 AM [facility] PHONE: FAX: Radha. Name: RENARD RIGOBERTORodolfo Garcia. No: [id number] Study Date: 07/16/2021 10:36am , Age: 04 1985, 35 Pregnancies: 7, Para 5, Ab 1 Height: 63 in Weight: 148 lb LMP: 12/10/2020 GA by LMP: 31w1d GA by Base: 31w1d JEREMIE: 09/16/2021 GA Selected: 31w1d (From [facility]) JEREMIE: 09/16/2021 Referring MD: Jagdish Dash MD Civil Engineer In Training: Breanna Dueñas RDMS CPT4: 27973 BMI: 26.21 Hist/Ind: COVID+ on 04/27/21 AMA, LR NIPT G1: partial placental separation at 28 weeks, 38 week IOL (weekly BPP per 04/17/21 ultrasound report due to prior abruption) G2: suspected cervical insufficiency with sPTB around 29 weeks G5: 34w6d CD of twins, both SGA Heart Rate: 153 bpm Amniotic Fluid Index: 12.8cm (08.8-23.8) Q1: 3.7cm Q2: 2.2cm Q3: 1.7cm Q4: 5.2cm Biophysical Profile: 01/13 Breathin Tone: 2 Movement: 2 AFV: 2 EVAL, PLACENTA Presentation: cephalic Placenta: anterior Heart Rate: 153 bpm Amniotic Fluid Volume: normal CLINICAL SUMMARY Study Number: 9 IMPRESSION: 1) Sung gestation, 31w1d 2) The amniotic fluid volume is within normal limits 3) Reassuring 8-point biophysical profile RECOMMEND: 1) Continue testing only if clinically indicated 2) Repeat growth assessment in 3 weeks Thank you for allowing us the opportunity to care for your patient. Katarzyna Bojorquez MD <Electronic Signature> 07/16/2021 11:34am Katarzyna Bojorquez MD [facility] ORDERABLES * BIOPHYSICAL PROFILE WO NST (07/09/2021 10:34 AM STUDIO HAND) Only the most recent of2 resultswithin the time period is included. Anatomical Region Laterality Modality Other 07/09/2021 10:3 4 AM STUDIO HAND Narrative 07/09/2021 12:25 PM STUDIO HAND [facility] PHONE: FAX: Radha. Name: RIGOBERTO GLYNN. No: [id number] Study Date: 07/09/2021 10:34am , Age: 04 1985, 35 Pregnancies: 7, Para 5, Ab 1 Height: 63 in Weight: 148 lb LMP: 12/10/2020 GA by LMP: 30w1d GA by Base: 30w1d JEREMIE: 09/16/2021 GA by US: 30w2d JEREMIE: 09/15/2021 GA Selected: 30w1d (LMP) JEREMIE: 09/16/2021 Referring MD: Jagdish Dash MD Civil Engineer In Training: Breanna Dueñas RDMS CPT4: 71255,56316 BMI: 26.21 Hist/Ind: COVID+ on 04/27/21 AMA, LR NIPT G1: partial placental separation at 28 weeks, 38 week IOL (weekly BPP per 04/17/21 ultrasound report due to prior abruption) G2: suspected cervical insufficiency with sPTB around 29 weeks G5: 34w6d CD of twins, both SGA MEASUREMENTS & AGE GROWTH EVALUATION Measurement GA Range Srce %for GA Ratios ----- ---- ------- BPD 7.6 cm 30w3d (43f6o-79u8y) Hadl BPD 50% FL/BPD 0.76 (0.71 - 0.87) HC 28.3 cm 31w0d (57l4a-83i7p) Hadl HC 40% FL/AC 0.21 (0.20 - 0.24) AC 27.0 cm 31w1d (83j7b-80a3i) Hadl AC 75% HC/AC 1.05 (0.97 - 1.16) FL 5.8 cm 30w2d (17g3f-08g5m) Hadl FL 42% CI 0.75 (0.70 - 0.86) GA for sonogram 30w2d (51x1p-03a7z) Weight Estimate: based on (BPD,HC,AC,FL) [place]lock Weight: 1648 gm (1404-1892gm) Had : 3lbs, 10oz Normal: 1578 gm (1183-1973gm) Had Wt% 63% for 30w1d Heart Rate: 145 bpm Amniotic Fluid Index: 12.9cm (09.0-23.4) Q1: 2.5cm Q2: 3.2cm Q3: 3.0cm Q4: 4.3cm Biophysical Profile: 01/13 Breathin Tone: 2 Movement: 2 AFV: 2 EVAL, PLACENTA Presentation: cephalic Placenta: anterior Heart Rate: 145 bpm Amniotic Fluid Volume: normal Anatomy!Normal!Abnormal!Suboptimal!Prev. Seen!Comments Situs ! x ! ! ! ! Stomach ! x ! ! ! ! Kidneys ! x ! ! ! ! Bladder ! x ! ! ! ! CLINICAL SUMMARY Study Number: 8 No abnormalities were detected during today's limited review of the anatomy. IMPRESSION: 1) Sung gestation, 30w1d 2) Biometry is consistent with appropriate growth 3) The amniotic fluid volume is within normal limits 4) Reassuring 8-point biophysical profile NOTE: The patient was advised that ultrasound does not allow detection of all structural or chromosomal abnormalities. RECOMMEND: 1) Continue testing if / as clinically indicated 2) Repeat growth assessment in 4 weeks Thank you for allowing us the opportunity to care for your patient. Katarzyna Bojorquez MD <Electronic Signature> 07/09/2021 12:26pm Katarzyna Bojorquez MD [facility] ORDERABLES * (ABNORMAL) URINALYSIS W/MICROSCOPIC NO CULTURE (05/29/2021 12:54 PM STUDIO HAND) Color UA YELLOW YELLOW [facility] Appearance CLEAR CLEAR [facility] Specific [place] UA 1.025 1.001 - 1.035 [facility] pH UA 6.5 5.0 - 8.0 [facility] Glucose UA NEGATIVE NEGATIVE [facility] Bilirubin UA NEGATIVE NEGATIVE [facility] Ketone UA NEGATIVE NEGATIVE [facility] Blood UA TRACE(A) NEGATIVE [facility] Protein UA NEGATIVE NEGATIVE [facility] Nitrite UA NEGATIVE NEGATIVE [facility] Leukocyte UA 2+(A) NEGATIVE [facility] WBC UA NONE SEEN < OR = 5 /HPF [facility] RBC UA NONE SEEN < OR = 2 /HPF [facility] Epithelial Cell UA 0-5 < OR = 5 /HPF [facility] Bacteria UA NONE SEEN NONE SEEN /HPF [facility] Calcium Oxalate Crystals FEW NONE OR FEW /HPF [facility] Hyaline Casts NONE SEEN NONE SEEN /LPF [facility] Comment: Test Performed at: [facility] [address] [address] [place] [address] CASSIUS RACHEL DO,MPH 05/29/2021 12:5 4 PM STUDIO HAND 05/29/2021 12:56 PM STUDIO HAND Ella Perkins COMPOSITE BOND WORKER-ESCALATOR SERVICE MECHANIC LAB - URINALYSI S ORDERABLES [address] [address] * (ABNORMAL) CULTURE URINE (05/29/2021 12:54 PM STUDIO HAND) Culture (A) [facility] Comment: CULTURE, URINE, ROUTINE Micro Number: [id number] Test Status: Final Specimen Source: Urine Specimen Quality: Adequate Result: 10,000-49,000 CFU/mL of Group B Streptococcus isolated Beta-hemolytic streptococci are predictably susceptible to Penicillin and other beta-lactams. Susceptibility testing not routinely performed. Please contact the laboratory within 3 days if susceptibility testing is desired. Comment: Erythromycin and clindamycin are not recommended for treatment of urinary tract infections, but clindamycin may be useful for treatment in penicillin allergic patients for rectovaginal colonization or for intrapartum prophylaxis if indicated. Any amount of group B Streptococcus in urine specimens obtained from females is a marker of genital tract colonization. If this patient is , please refer to ACOG guidelines for appropriate screening and management of women. COMMENT: Additional non-predominating organism(s) isolated. These organisms, commonly found on external and internal genitalia, are considered colonizers. No further testing performed. Test Performed at: [facility] [address] MAYDA ANGELES MD 05/29/2021 12:5 4 PM STUDIO HAND 05/29/2021 12:56 PM STUDIO HAND Ella Gregorio COMPOSITE BOND WORKER-ESCALATOR SERVICE MECHANIC LAB - MICROBIOL OGY ORDERABLES [facility] [address] [place] [address] * CULTURE AEROBIC (03/09/2014 5:26 PM CDT) Culture Aerobic GROWTH OF NORMAL UROGENITAL/ SKIN [facility] Gram Stain [facility] Comment:QNS for Gram stain - 1 swab only Cervix 03/09/2014 5:26 PM CDT 03/09/2014 9:55 PM CDT Narrative [facility] - 03/12/2014 1:20 PM CDT StefanSpecimen#[id number] Stefan Loc/Rm/Bed: ED// Historical Provider MD LAB - MICROBIOLOG Y ORDERABLES [facility] [address] [place] [address] * LAB RESULTS ORDER (03/10/2012 6:13 AM CDT) Narrative Transcriptions Document, Scanned - 03/10/2012 6:13 AM CDT Scanned Document LAB - THERAPEUTIC DR UG MONITORING ORDERABLES * IMAGING/RADIOLOGY/XRAY RESULTS ORDER (03/10/2012 6:13 AM CDT) Anatomical Region Laterality Modality Other Narrative Transcriptions Document, Scanned - 03/10/2012 6:13 AM CDT Scanned Document IMAGING * GLUCOSE PROTEIN KETONE URINE - POINT OF CAR (11/24/2011 10:54 AM CDT) Only the most recent of4 resultswithin the time period is included. Glucose UA neg Negative [facility] TEST[facility] Protein UA neg Negative [facility] Ketone UA neg Negative [facility] QC Verified yes Yes [facility] POC T TESTING Urine specimen (specimen) URINE / Unknown 11/24/2011 10:54 AM CDT Alma Mejias MD LAB - POINT OF CARE ORDERABLES [facility] [place] [address] * SONOGRAM - TRANSVAGINAL (10/28/2011 7:52 AM CDT) Anatomical Region Laterality Modality Other 10/28/2011 7:52 AM CDT Narrative 11/07/2011 11:06 AM CDT [facility] PHONE: FAX: Radha. Name: RIGOBERTO GLYNN Radha. No: [id number] Study Date: 10/28/2011 7:52am , Age: 04 1985, 26 Pregnancies: 4, Para 2, Ab 1 LMP: Unknown GA by 1st: 28w5d GA by US: 28w1d GA Selected: 28w5d (From Known E) JEREMIE: 01/15/2012 Referring MD: ERIC Civil Engineer In Training: aTmmy Ogden RDMS Hist/Ind: Prior SAB, Incompetent Cervix MEASUREMENTS & AGE GROWTH EVALUATION Measurement GA Range Srce %for GA Ratios ----- ---- ------- BPD 6.7 cm 27w1d (91t1x-81c6q) Hadl BPD 18% FL/BPD 0.81 (0.71 - 0.87) HC 25.2 cm 27w3d (98y3x-27y0w) Hadl HC 21% FL/AC 0.22 (0.20 - 0.24) AC 25.0 cm 29w2d (74d3z-12y1i) Hadl AC 61% HC/AC 1.01 (0.99 - 1.18) FL 5.5 cm 28w6d (91o5o-18j3d) Hadl FL 54% CI 0.73 (0.70 - 0.86) HL 4.8 cm 28w1d (36q6k-32d5u) Michel HL 40% GA for sonogram 28w1d (31b3p-64s0s) Weight Estimate: based on (HL,BPD,HC,AC,FL) Avg Weight: 1284 gm (2213-1563) Hadlo : 2lbs, 13oz Normal: 1264 gm (856-1824) Brenne Wt% 51% for 28.7 wks Cervical Length: 3.7 cm Heart Rate: 164 bpm Amniotic Fluid Index: 14.5cm (09.3-23.0) Biophysical Profile: 01/13 Breathin Tone: 2 Movement: 2 AFV: 2 CLINICAL SUMMARY Study Number: 2 A sung fetus is identified in breech presentation. The measurements today are consistent with appropriate growth compared to previous examination. The JEREMIE selected is based on prior ultrasound examination. The amniotic fluid volume is within normal limits. The placenta is posterior, Grade 1. No major malformations are seen. The patient was advised that ultrasound does not allow detection of all structural or chromosomal abnormalities. TRANSVAGINAL ULTRASOUND: The transvaginal cervical length measures 3.7 cm with no funneling identified. No change is seen with fundal pressure. TESTING The Biophysical profile score is 8/8 IMPRESSION: Single, live, IUP at 28w5d AGA growth Normal AFV No malformations seen within the limitations of ultrasound Reassuring CL and appearance RECOMMEND: Follow up ultrasound as clinically indicated Thank you for allowing us the opportunity to care for your patient Lex Mata MD <Electronic Signature> 11/07/2011 11:06am Ewelina Navarro MD [facility] ORDERABLES * RPR (10/20/2011 11:05 AM CDT) Pathologist [facility] RPR Non-Reacti ve Non Reacti [facility] Blood specimen (specimen) BLOOD SPECIMEN / Unknown 10/20/2011 11:05 AM CDT 10/20/2011 11:37 AM CDT Javan Martinez MD LAB - CHEMISTRY [facility] Performing Organization Address [facility] Co de Phone Number [facility] [address] [place] [address] * RUBELLA ANTIBODY IGG (10/20/2011 11:05 AM CDT) [facility] Rubella Antibody 224.3 SEE BELOW IU/ml [facility] Comment: =>10.0 Positive-Immune 5.0-9.9 Suggest Repeat Testing <5.0 Negative-Nonimmune BLOOD SPECIMEN / Unknown 10/20/2011 11:05 AM CDT 10/20/2011 12:21 PM CDT Ericka Alcantara MD LAB - SEROLOGY [facility] Performing Organization Address City/[facility]/ZIP Co de Phone Number [facility] [address] [place] [address] * (ABNORMAL) CBC W AUTO DIFFERENTIAL (10/20/2011 11:05 AM CDT) [facility] WBC 7.4 4.0 - 10.0 K/CUMM [facility] RBC 3.62(L) 3.80 - 5.80 M/CUMM [facility] Hemoglobin 11.2(L) 12.0 - 16.0 gm/dL [facility] Hematocrit 33.6(L) 37.0 - 47.0 % [facility] MCV 92.8 80.0 - 100.0 fl [facility] MCH 30.9 26.0 - 34.0 pg [facility] MCHC 33.3 31.0 - 37.0 gm/dL [facility] Platelet Count 151 150 - 400 K/CUMM [facility] RDW 13.6 11.5 - 14.5 % [facility] Granulocytes % 73.8(H) 50 - 70 % [facility] Lymphocytes % 19.1(L) 20 - 40 % [facility] Monocytes % 6.1 0 - 12 % [facility] Eosinophils % 0.5 0 - 5 % [facility] Basophils % 0.1 0 - 2 % [facility] Granulocytes Absolute 5.45 2.00 - 7.00 x1000/cmm [facility] Lymphocytes Absolute 1.41 0.80 - 4.00 x1000/cmm [facility] Monocytes Absolute 0.45 0.00 - 1.20 x1000/cmm [facility] Eosinophils Absolute 0.04 0.00 - 0.50 x1000/cmm [facility] Basophils Absolute 0.01 0.00 - 0.20 x1000/cmm [facility] Blood specimen (specimen) BLOOD SPECIMEN / Unknown 10/20/2011 11:05 AM CDT 10/20/2011 11:37 AM CDT Javan Martinez MD LAB - HEMATOLOGY ORD ERABLES Performing Organization Address City/[facility] Co de Phone Number [facility] [address] [place] [address] * HEPATITIS B SURFACE ANTIGEN (10/20/2011 11:05 AM CDT) Hepatitis B Virus Surface Antigen Nonreactive Nonreactiv [facility] Blood specimen (specimen) BLOOD SPECIMEN / Unknown 10/20/2011 11:05 AM CDT 10/20/2011 12:21 PM CDT Ericka Alcantara MD LAB - CHEMISTRY ORD ERABLES Performing Organization Address [facility] Co de Phone Number [facility] [address] [place] [address] * GLUCOSE CHALLENGE (10/20/2011 11:05 AM CDT) Glucose Challenge 98 mg/dl [facility] Glucose Challenge Time 1105 [facility] BLOOD SPECIMEN / Unknown 10/20/2011 11:05 AM CDT 10/20/2011 11:37 AM CDT Javan Martinez MD LAB - CHEMISTRY [facility] Organization Address City/State/ZIP Co de Phone Number [facility] [address] [place] [address] Care Teams [employer] Analyst Relationship Specialty Start Date End Date Ignacio Campos MD [address] [facility] [place] [address] PCP - General 10/06/11
[2024-08-13 08:55] VITALS: BP 131/79; PULSE 85; RESP 16; TEMP 36.8; O2SAT 98
[2024-08-13 09:14] LABS: BEDSIDEPREGUCG Negative (Negative)
[2024-08-13 09:18] LABS: Basophils Percent Auto 0.5 % (0.2-1.2); Eosinophils Percent Auto 0.7 % (0-4.4); Hematocrit 44.2 % (37.0-47.0); Hemoglobin 14.8 g/dL (12.0-15.0); Immature Granulocyte Absolute 0.02 K/mm3 (0.00-0.031); Immature Granulocyte Percent A 0.4 % (0-0.5); Lymphocytes Absolute Auto 1.35 K/mm3 (0.9-3.2); Lymphocytes Percent Auto 23.9 % (18.3-44.2); Mean Corpuscular HGB Conc 33.5 g/dl (32-36); Mean Corpuscular Hemoglobin 30.9 pg (26-34); Mean Corpuscular Volume 92.3 fl (80-100); Mean Platelet Volume 10.8 fl (7.4-10.4); Monocytes Absolute Auto 0.4 K/mm3 (0.1-0.6); Monocytes Percent Auto 7.1 % (2.6-8.5); Neutrophils Absolute Auto 3.8 K/mm3 (1.3-6.7); Neutrophils Percent Auto 67.4 % (45.5-73.1); Platelet Count Result 179 k/mm3 (150-375); Red Blood Count 4.79 M/mm3 (4.2-5.4); Red Cell Distribution Width 13.4 % (11.5-14.5); White Blood Count 5.7 K/mm3 (4.5-10.0)
[2024-08-13 09:21] LABS: Add Urine Microscopic? YES; Appearance Urine Clear (Clear); Bacteria Urine None Seen /hpf; Bilirubin Urine Negative (Negative); Blood Urine 2+ (Negative); Color Urine Yellow (Yellow); Glucose Urine UA Negative (Negative); Ketones Urine 1+ mg/dL (Negative); Leukocyte Esterase Ur Negative LEU/UL (Negative); Nitrate Urine Negative (Negative); Non Pathogenic Casts 0-2; Protein Urine Negative (Negative); Specific Grav Ur 1.003 (1.001-1.035); Squamous Epithelial Cell Urine None Seen /hpf (Few); Urobilinogen Urine 0.2 mg/dL (<2.0); WBC Urine 0-5 /hpf (0-3); pH Urine 6.5 (5.0-9.0)
[2024-08-13 09:26] LABS: Alanine Aminotransferase 75 U/L (6-35); Albumin Level 4.8 g/dL (3.5-5.1); Alkaline Phosphatase 72 U/L (38-126); Anion Gap 14 mmol/L (4-12); Aspartate Amino Transferase 41 U/L (14-36); Bilirubin,Total 0.7 mg/dL (0.2-1.3); Blood Urea Nitrogen 8 mg/dL (7-17); Calcium 9.4 mg/dL (8.4-10.2); Carbon Dioxide 25 mmol/L (22-30); Chloride 100 mmol/L (98-107); Estimated Glomerular Filt Rate > 60; Glucose 89 mg/dL (65-110); Lipase 50 U/L (23-300); Potassium 3.5 mmol/L (3.4-5.0); Sodium 139 mmol/L (137-145)
--- OUTSIDE RECORDS SUMMARY | 2024-08-13 10:06 | XMS_ITS | Clinical Summary ---
Author Organization [facility] Address [address] [facility] [place] [address] Care Team Providers Care Mask Inspector Name Role Phone Ignacio Campos MD Primary Care Provider [phone] Source Comments [facility],non-owned Affiliates and Associated Physician Practices is amultiple site organization consisting of ambulatory clinics and hospital sitesin [place], [place], [place] and [place]. This disclosure is being madepursuant to the Care Everywhere program and may not contain all information available regarding this patient. Last updated 18.[facility] Allergies No known active allergies Medications * [...] 04/17/2021 Assessment & Plan (04/17/2021 12:45 PM CAPTAIN WAITER): The obstetric risks of advanced maternal age [...] antepartum Assessment & Plan (04/17/2021 12:50 PM CAPTAIN WAITER): We discussed the patients choices regarding elective [...] your office would like the support of [facility] at delivery for TOLAC please let us know and we can facilitate delivery at [facility] Former tobacco use 04/17/2021 Assessment & Plan (04/17/2021 12:54 PM CAPTAIN WAITER): Tobacco is associated with an increased risk of low weight, abruptio placenta, delivery and sudden infant syndrome. Was a risk factor in her previous delivery[ies]. 1. Would benefit from --discuss at next visit History of delivery, currently 10/06/2011 Assessment & Plan (04/17/2021 12:52 PM CAPTAIN WAITER): We discussed some of the previous risk [...] been 17 OH PC supplementation. Administration of 37-obwblpj-hktwclosmvyf caproate (17-OHPC) weekly, starting from 16-18 weeks to 36 weeks has shown to reduce the risk of premature delivery. 17-OHPC has been found to decrease the risk of delivery at 37, 35, and 32 weeks is high risk patients. The half-way data on the impact of progesterone exposure [...] warrants in person evaluation by the primary sample hand, with treatment as indicated--even treatment of bacterial vaginosis Insomnia Assessment & Plan (04/17/2021 12:56 PM CAPTAIN WAITER): Was previously prescribed hydroxyzine for sleep help. Concerned about taking medication during . Has a counselor through [employer]. At risk for mood deterioration. Recommendations 1. Talk to counselor monthly 2. IF mood deterioration may benefit from consultation with Psychiatrist and Clinical Pharmacist for medication recommendations History of placental abruption Assessment & Plan (04/17/2021 1:46 PM CAPTAIN WAITER): Recommendations 1. Serial growth 2. Weekly BPP [...] 74.8 kg (165 lb) 05/29/2021 10:31 AM CAPTAIN WAITER Height 160 cm (5' 3 ) 10/06/2011 [...] * GLUCOSE CHALLENGE (10/20/2011 11:05 AM CDT) [facility] Glucose Challenge 98 mg/dl [facility] Glucose Challenge Time 1105 [facility] BLOOD SPECIMEN / Unknown 10/20/2011 11:05 AM CDT 10/20/2011 11:37 AM CDT Javan Martinez MD LAB - CHEMISTRY [place] Performing Organization Address City/State/[facility] Co de Phone Number [facility] [address] [place] [address] from Last 3 Months or Most Recently Relevant to Health Maintenance Care Teams Mask Inspector Relationship Specialty Start Date End Date Ignacio Campos MD [address] [facility] [place] [id number] [facility] - General 10/06/11
--- OUTSIDE RECORDS SUMMARY | 2024-08-13 10:06 | XMS_ITS | Referral Summary ---
Author Organization [facility] al Address [address] [place] [address] Care Team Providers Care Brand Executive Name Role Phone Ewelina Juarez NP Primary Care Provider [phone] Encounters Date Type Department Care Team Description 07/24/2024 6:36 AM ACQUISITION COST ESTIMATOR - 07/24/2024 9:27 AM ACQUISITION COST ESTIMATOR Emergency [facility] Emergency Department [address] [place] [address] Malaise (Primary Dx) Discharge Disposition: [...] on file Legal Sex Female 8:21 PM ACQUISITION COST ESTIMATOR Gender Identity Not on file Sexual Orientation Not on file Last Filed Vital Signs Vital Sign Reading Time Taken Comments Blood Pressure 122/93 07/24/2024 7:15 AM ACQUISITION COST ESTIMATOR Pulse 124 07/24/2024 7:15 AM ACQUISITION COST ESTIMATOR Temperature 36.9 C (98.5 F) 07/24/2024 7:10 AM ACQUISITION COST ESTIMATOR Respiratory Rate 18 07/24/2024 7:10 AM ACQUISITION COST ESTIMATOR Oxygen Saturation 98% 07/24/2024 7:15 AM ACQUISITION COST ESTIMATOR Inhaled Oxygen Concentration - - Weight 79.4 kg (175 lb) 07/24/2024 6:24 AM ACQUISITION COST ESTIMATOR Height 160 cm (5' 2.99 ) 07/24/2024 7:51 AM ACQUISITION COST ESTIMATOR Body Mass Index 31.01 07/24/2024 6:24 AM ACQUISITION COST ESTIMATOR Plan of Treatment Not on file Procedures Procedure Name Priority Date/Time Associated Diagnosis Comments EGFR STAT 07/24/2024 7:42 AM ACQUISITION COST ESTIMATOR DIFFERENTIAL AUTO STAT 07/24/2024 7:4 2 AM ACQUISITION COST ESTIMATOR CBC WITH AUTO DIFFERENTIAL STAT 07/24/2024 7:42 AM ACQUISITION COST ESTIMATOR COMPREHENSIVE METABOLIC PANEL STAT 07/24/2024 7:42 AM ACQUISITION COST ESTIMATOR RESPIRATORY PATHOGEN PANEL STAT 07/24/2024 6:31 AM ACQUISITION COST ESTIMATOR from Last 3 Months Results * eGFR (07/24/2024 7:42 AM ACQUISITION COST ESTIMATOR) eGFR >90 >=60 mL/min/1. 73 m2 Comment: [...] last reviewed 2021. Blood 07/24/2024 7:42 AM ACQUISITION COST ESTIMATOR 07/24/2024 7:53 AM ACQUISITION COST ESTIMATOR us Travis Jerome [facility] LAB BLOOD ORDERABLES Final Result [facility] Department [place] [address] * Differential, auto (07/24/2024 7:42 AM ACQUISITION COST ESTIMATOR) Neutrophil abs 6.1 1.5 - 6.5 K/cumm Imm gran abs 0.0 0.0 - 0.1 K/cumm [facility] Lymphocyte abs 1.8 0.8 - 3.3 K/cumm [facility] Monocyte abs 0.6 0.2 - 0.8 K/cumm [facility] Eosinophil abs 0.0 0.0 - 0.5 K/cumm [facility] Basophil abs 0.0 0.0 - 0.1 K/cumm [facility] Neutrophil pct 71.3 % [facility] Comment: Interpretive Data Percent cell count reference ranges are not reported, since discordance with absolute values may lead to misinterpretation of CBC data. Current Interpretive Data was last revised on 2017. Imm gran pct 0.2 % [facility] Comment: Interpretive Data Percent cell count reference ranges are not reported, since discordance with absolute values may lead to misinterpretation of CBC data. Current Interpretive Data was last revised on 2017. Lymphocyte pct 20.9 % [facility] Comment: Interpretive Data Percent cell count reference ranges are not reported, since discordance with absolute values may lead to misinterpretation of CBC data. Current Interpretive Data was last revised on 2017. Monocyte pct 6.8 % [facility] Comment: Interpretive Data Percent cell count reference ranges are not reported, since discordance with absolute values may lead to misinterpretation of CBC data. Current Interpretive Data was last revised on 2017. Eosinophil pct 0.4 % [facility] Comment: Interpretive Data Percent cell count reference ranges are not reported, since discordance with absolute values may lead to misinterpretation of CBC data. Current Interpretive Data was last revised on 2017. Basophil pct 0.4 % [facility] Comment: Interpretive Data Percent cell count reference ranges are not reported, since discordance with absolute values may lead to misinterpretation of CBC data. Current Interpretive Data was last revised on 2017. Blood 07/24/2024 7:42 AM ACQUISITION COST ESTIMATOR 07/24/2024 7:53 AM ACQUISITION COST ESTIMATOR Travis Jerome [facility] LAB BLOOD ORDERABLES Final Result [facility] [place] [address] * CBC with auto differential (07/24/2024 7:42 AM ACQUISITION COST ESTIMATOR) [facility] WBC 8.5 3.8 - 9.9 K/cumm Hgb 14.7 11.9 - 15.5 g/dL [facility] Hct 43.1 35.6 - 45.5 % [facility] Plt 284 150 - 400 K/cumm [facility] MPV 10.6 9.1 - 12.3 fL [facility] RBC 4.94 3.90 - 5.20 M/cumm [facility] MCV 87.2 81.3 - 96.4 fL [facility] MCH 29.8 27.1 - 33.3 pg [facility] MCHC 34.1 32.3 - 35.7 g/dL [facility] RDW CV 13.3 11.1 - 14.9 % [facility] RDW SD 42.1 35.7 - 48.1 fL [facility] NRBC abs 0.00 0.00 - 0.01 K/cumm [facility] Blood 07/24/2024 7:42 AM ACQUISITION COST ESTIMATOR 07/24/2024 7:53 AM ACQUISITION COST ESTIMATOR Travis Jerome [facility] LAB BLOOD ORDERABLES Final Result [facility] Department [place] [address] * (ABNORMAL) Comprehensive metabolic panel (07/24/2024 7:42 AM ACQUISITION COST ESTIMATOR) [facility] Sodium 141 135 - 145 mmol/L Potassium, pl 3.9 3.3 - 4.9 mmol/L [facility] Comment:Hemolyzed; Potassium value may be falsely elevated by as much as 0.3-0.5 mmol/L. Suggest redraw and reanalysis. Chloride 102 97 - 110 mmol/L [facility] CO2 25 22 - 32 mmol/L [facility] Anion gap 14 2 - 15 mmol/L [facility] BUN 7 6 - 25 mg/dL [facility] Creatinine 0.80 0.60 - 1.10 mg/dL [facility] Glucose 98 70 - 199 mg/dL [facility] Comment: Interpretive Data Fasting glucose >/= [...] 2022. Calcium 10.2 8.5 - 10.3 mg/dL [facility] Bilirubin, total 0.5 0.1 - 1.2 mg/dL [facility] Protein, pl 8.3 6.5 - 8.5 g/dL [facility] Albumin 4.7 3.5 - 5.0 g/dL [facility] Alk phos 90 40 - 130 Units/L [facility] ALT 51(H) 7 - 45 Units/L [facility] AST 38 10 - 45 Units/L [facility] Comment:Hemolyzed; result ma y be falsely elevated Blood 07/24/2024 7:42 AM ACQUISITION COST ESTIMATOR 07/24/2024 7:53 AM ACQUISITION COST ESTIMATOR Travis Jerome [facility] LAB BLOOD ORDERABLES Final Result [facility] [place] [address] * Respiratory pathogen panel Nasopharyngeal (07/24/2024 6:31 AM ACQUISITION COST ESTIMATOR) Pathologist [facility] Influenza A RNA Not Detected Not Detected Influenza B RNA Not Detected Not Detected [facility] RSV RNA Not Detected Not Detected [facility] COVID-19 RNA Not Detected Not Detected [facility] Coronavirus 229E RNA Not Detected Not Detected [facility] Coronavirus HKU1 RNA Not Detected Not Detected [facility] Coronavirus NL63 RNA Not Detected Not Detected [facility] Coronavirus OC43 RNA Not Detected Not Detected [facility] Adenovirus DNA Not Detected Not Detected [facility] Metapneumovirus RNA Not Detected Not Detected [facility] Rhinovirus/Enterov irus RNA Not Detected Not Detected [facility] Parainfluenza 1 RNA Not Detected Not Detected [facility] Parainfluenza 2 RNA Not Detected Not Detected [facility] Parainfluenza 3 RNA Not Detected Not Detected [facility] Parainfluenza 4 RNA Not Detected Not Detected [facility] B. pertussis DNA Not Detected Not Detected [facility] B. parapertussis DNA Not Detected Not Detected [facility] C. pneumoniae DNA Not Detected Not Detected [facility] M. pneumoniae DNA Not Detected Not Detected [facility] Nasopharyngeal 07/24/2024 6: 31 AM ACQUISITION COST ESTIMATOR 07/24/2024 7:02 AM ACQUISITION COST ESTIMATOR Narrative [facility] - 07/24/2024 8:17 AM ACQUISITION COST ESTIMATOR Is the Patient experiencing symptoms consistent with COVID?->Yes Surveillance testing for transplant patient?->No Interpretive Data The [employer] FilmArray Respiratory Panel (RP2.1) assay is a [...] assay has FDA clearance for testing of COMPOSITE TECHNICIAN swabs. The performance of additional specimen types has been assessed by the performing laboratory. The performance characteristics of this assay have been determined by [facility]. Current interpretive data was last revised on 22. Brian Grullon MD LAB MICROBIOLOGY - [facility] ORDERABLES Final Result [facility] Department [place] [address] from Last 3 Months Insurance [facility] Care Teams Brand Executive Relationship Specialty Start Date End Date Ewelina Juarez NP [address] [place] [address] PCP - General Family Medicine 07/24/24
--- OUTSIDE RECORDS SUMMARY | 2024-08-13 10:06 | XMS_ITS | Clinical Summary ---
Author Organization [facility] al Address [address] [place] [address] Care Team Providers Care Dryer And Washer Mechanic Name Role Phone Ewelina Juarez NP Primary Care Provider [phone] Allergies No known active allergies Medications No known medications Active Problems No known active problems Encounters Date Type Department Care Team Description 07/24/2024 6:36 AM CORRECTIONAL PROBATION OFFICER - 07/24/2024 9:27 AM CORRECTIONAL PROBATION OFFICER Emergency [facility] Emergency Department [address] [place] [id number] Malaise (Primary Dx) Discharge Disposition: Discharge to [...] on file Legal Sex Female 8:21 PM CORRECTIONAL PROBATION OFFICER Gender Identity Not on file Sexual Orientation Not on file Obstetrics History Last Filed Vital Signs Vital Sign Reading Time Taken Comments Blood Pressure 122/93 07/24/2024 7:15 AM CORRECTIONAL PROBATION OFFICER Pulse 124 07/24/2024 7:15 AM CORRECTIONAL PROBATION OFFICER Temperature 36.9 C (98.5 F) 07/24/2024 7:10 AM CORRECTIONAL PROBATION OFFICER Respiratory Rate 18 07/24/2024 7:10 AM CORRECTIONAL PROBATION OFFICER Oxygen Saturation 98% 07/24/2024 7:15 AM CORRECTIONAL PROBATION OFFICER Inhaled Oxygen Concentration - - Weight 79.4 kg (175 lb) 07/24/2024 6:24 AM CORRECTIONAL PROBATION OFFICER Height 160 cm (5' 2.99 ) 07/24/2024 7:51 AM CORRECTIONAL PROBATION OFFICER Body Mass Index 31.01 07/24/2024 6:24 AM CORRECTIONAL PROBATION OFFICER Plan of Treatment Health Maintenance Due Date [...] Diagnosis Comments EGFR STAT 07/24/2024 7:42 AM CORRECTIONAL PROBATION OFFICER DIFFERENTIAL AUTO STAT 07/24/2024 7:4 2 AM CORRECTIONAL PROBATION OFFICER CBC WITH AUTO DIFFERENTIAL STAT 07/24/2024 7:42 AM CORRECTIONAL PROBATION OFFICER COMPREHENSIVE METABOLIC PANEL STAT 07/24/2024 7:42 AM CORRECTIONAL PROBATION OFFICER RESPIRATORY PATHOGEN PANEL STAT 07/24/2024 6:31 AM CORRECTIONAL PROBATION OFFICER from Last 3 Months Results * eGFR (07/24/2024 7:42 AM CORRECTIONAL PROBATION OFFICER) eGFR >90 >=60 mL/min/1. 73 m2 Comment: [...] last reviewed 2021. Blood 07/24/2024 7:42 AM CORRECTIONAL PROBATION OFFICER 07/24/2024 7:53 AM CORRECTIONAL PROBATION OFFICER Travis Jerome [facility] LAB BLOOD ORDERABLES Final Result [facility] Department [place] [address] * Differential, auto (07/24/2024 7:42 AM CORRECTIONAL PROBATION OFFICER) Neutrophil abs 6.1 1.5 - 6.5 K/cumm Imm gran abs 0.0 0.0 - 0.1 K/cumm [facility] Lymphocyte abs 1.8 0.8 - 3.3 K/cumm [facility] Monocyte abs 0.6 0.2 - 0.8 K/cumm [facility] Eosinophil abs 0.0 0.0 - 0.5 K/cumm [facility] Basophil abs 0.0 0.0 - 0.1 K/cumm [facility] Neutrophil pct 71.3 % [facility] Comment: Interpretive Data Percent cell count reference ranges are not reported, since discordance with absolute values may lead to misinterpretation of CBC data. Current Interpretive Data was last revised on 2017. Imm gran pct 0.2 % [facility] Comment: Interpretive Data Percent cell count reference ranges are not reported, since discordance with absolute values may lead to misinterpretation of CBC data. Current Interpretive Data was last revised on 2017. Lymphocyte pct 20.9 % [facility] Comment: Interpretive Data Percent cell count reference ranges are not reported, since discordance with absolute values may lead to misinterpretation of CBC data. Current Interpretive Data was last revised on 2017. Monocyte pct 6.8 % [facility] Comment: Interpretive Data Percent cell count reference ranges are not reported, since discordance with absolute values may lead to misinterpretation of CBC data. Current Interpretive Data was last revised on 2017. Eosinophil pct 0.4 % [facility] Comment: Interpretive Data Percent cell count reference ranges are not reported, since discordance with absolute values may lead to misinterpretation of CBC data. Current Interpretive Data was last revised on 2017. Basophil pct 0.4 % [facility] Comment: Interpretive Data Percent cell count reference ranges are not reported, since discordance with absolute values may lead to misinterpretation of CBC data. Current Interpretive Data was last revised on 2017. Blood 07/24/2024 7:42 AM CORRECTIONAL PROBATION OFFICER 07/24/2024 7:53 AM CORRECTIONAL PROBATION OFFICER Travis Jerome [facility] LAB BLOOD ORDERABLES Final Result [facility] Department [place] [address] * CBC with auto differential (07/24/2024 7:42 AM CORRECTIONAL PROBATION OFFICER) WBC 8.5 3.8 - 9.9 K/cumm Hgb 14.7 11.9 - 15.5 g/dL [facility] Hct 43.1 35.6 - 45.5 % [facility] Plt 284 150 - 400 K/cumm [facility] MPV 10.6 9.1 - 12.3 fL [facility] RBC 4.94 3.90 - 5.20 M/cumm [facility] MCV 87.2 81.3 - 96.4 fL [facility] MCH 29.8 27.1 - 33.3 pg [facility] MCHC 34.1 32.3 - 35.7 g/dL [facility] RDW CV 13.3 11.1 - 14.9 % [facility] RDW SD 42.1 35.7 - 48.1 fL [facility] NRBC abs 0.00 0.00 - 0.01 K/cumm [facility] Blood 07/24/2024 7:42 AM CORRECTIONAL PROBATION OFFICER 07/24/2024 7:53 AM CORRECTIONAL PROBATION OFFICER us Travis Jerome [facility] LAB BLOOD ORDERABLES Final Result [facility] Department [place] [address] * (ABNORMAL) Comprehensive metabolic panel (07/24/2024 7:42 AM CORRECTIONAL PROBATION OFFICER) Sodium 141 135 - 145 mmol/L Potassium, pl 3.9 3.3 - 4.9 mmol/L [facility] Comment:Hemolyzed; Potassium value may be falsely elevated by as much as 0.3-0.5 mmol/L. Suggest redraw and reanalysis. Chloride 102 97 - 110 mmol/L [facility] CO2 25 22 - 32 mmol/L [facility] Anion gap 14 2 - 15 mmol/L [facility] BUN 7 6 - 25 mg/dL [facility] Creatinine 0.80 0.60 - 1.10 mg/dL [facility] Glucose 98 70 - 199 mg/dL [facility] Comment: Interpretive Data Fasting glucose >/= 126 [...] 2022. Calcium 10.2 8.5 - 10.3 mg/dL [facility] Bilirubin, total 0.5 0.1 - 1.2 mg/dL [facility] Protein, pl 8.3 6.5 - 8.5 g/dL [facility] Albumin 4.7 3.5 - 5.0 g/dL [facility] Alk phos 90 40 - 130 Units/L [facility] ALT 51(H) 7 - 45 Units/L [facility] AST 38 10 - 45 Units/L [facility] Comment:Hemolyzed; result ma y be falsely elevated Blood 07/24/2024 7:42 AM CORRECTIONAL PROBATION OFFICER 07/24/2024 7:53 AM CORRECTIONAL PROBATION OFFICER Travisphil Mccormick Queenie [facility] LAB BLOOD ORDERABLES Final Result [facility] Department [place] [address] * Respiratory pathogen panel Nasopharyngeal (07/24/2024 6:31 AM CORRECTIONAL PROBATION OFFICER) Pathologist [facility] Influenza A RNA Not Detected Not Detected Influenza B RNA Not Detected Not Detected [facility] RSV RNA Not Detected Not Detected [facility] COVID-19 RNA Not Detected Not Detected [facility] Coronavirus 229E RNA Not Detected Not Detected [facility] Coronavirus HKU1 RNA Not Detected Not Detected [facility] Coronavirus NL63 RNA Not Detected Not Detected [facility] Coronavirus OC43 RNA Not Detected Not Detected [facility] Adenovirus DNA Not Detected Not Detected [facility] Metapneumovirus RNA Not Detected Not Detected [facility] Rhinovirus/Enterov irus RNA Not Detected Not Detected [facility] Parainfluenza 1 RNA Not Detected Not Detected [facility] Parainfluenza 2 RNA Not Detected Not Detected [facility] Parainfluenza 3 RNA Not Detected Not Detected [facility] Parainfluenza 4 RNA Not Detected Not Detected [facility] B. pertussis DNA Not Detected Not Detected [facility] B. parapertussis DNA Not Detected Not Detected [facility] C. pneumoniae DNA Not Detected Not Detected [facility] M. pneumoniae DNA Not Detected Not Detected [facility] Nasopharyngeal 07/24/2024 6: 31 AM CORRECTIONAL PROBATION OFFICER 07/24/2024 7:02 AM CORRECTIONAL PROBATION OFFICER Narrative [facility] - 07/24/2024 8:17 AM CORRECTIONAL PROBATION OFFICER Is the Patient experiencing symptoms consistent with COVID?->Yes Surveillance testing for transplant patient?->No Interpretive Data The [employer] FilmArray Respiratory Panel (RP2.1) assay is a [...] assay has FDA clearance for testing of MOBILE PRACTICE LEAD swabs. The performance of additional specimen types has been assessed by the performing laboratory. The performance characteristics of this assay have been determined by [facility] Infectious Disease [facility]. Current interpretive data was last revised on 22. Brian Grullon MD LAB MICROBIOLOGY - [facility] ORDERABLES Final Result [facility] [place] [address] from Last 3 Months Insurance [facility] Care Teams Dryer And Washer Mechanic Relationship Specialty Start Date End Date Ewelina Juarez NP [address] [place] [address] PCP - General Family Medicine 07/24/24
--- OUTSIDE RECORDS SUMMARY | 2024-08-13 10:06 | XMS_ITS | Patient Health Summary ---
Author Organization [facility] Address [address] [place] [address] Care Team Providers Care Paraplanner Name Role Phone Ignacio Campos MD Primary Care Provider [phone] Note from [facility],non-owned Affiliates and Associated Physician Practices is amultiple site organization consisting of ambulatory clinics and hospital sitesin [place], [place], [place] and [place]. This disclosure is being madepursuant to the Care Everywhere program and may not contain all information available regarding this patient. Last updated 18.[facility] Allergies No known active allergies Medications * [...] 74.8 kg (165 lb) 05/29/2021 10:31 AM GRAIN UNLOADER MACHINE Height 160 cm (5' 3 ) 10/06/2011 [...] 06/26/2021) Performed for 28 weeks gestation of ([facility]), History of delivery, currently (HCC), History of [...] delivery, antepartum (HCC), History of delivery, currently ([facility]), 24 weeks gestation of (HCC), History of [...] CDT Narrative 09/03/2021 11:43 AM CDT [facility] PHONE: FAX: Radha. Name: RIGOBERTO GLYNN. No: [id number] Study Date: 09/03/2021 10:29am , Age: 04 1985, 35 Pregnancies: 7, Para 3, Ab 1 Height: 63 in Weight: 148 lb LMP: 12/10/2020 GA by LMP: 38w1d GA by Base: 38w1d JEREMIE: 09/16/2021 GA Selected: 38w1d (From [facility]) JEREMIE: 09/16/2021 Referring MD: Jagdish Dash MD Oil Operator: Breanna Dueñas RDMS CPT4: 46368 BMI: 26.21 Hist/Ind: G1: partial placental separation [...] <Electronic Signature> 09/03/2021 11:43am Katarzyna Bojorquez MD [facility] ORDERABLES * SONOGRAM - COMPLETE (07/16/2021 10:36 AM GRAIN UNLOADER MACHINE) Only the most recent of8 resultswithin the time period is included. Anatomical Region Laterality Modality Other 07/16/2021 10:3 6 AM GRAIN UNLOADER MACHINE Narrative 07/16/2021 11:34 AM [facility] PHONE: FAX: Radha. Name: RENARD RIGOBERTORodolfo Garcia. No: [id number] Study Date: 07/16/2021 10:36am , Age: 04 1985, 35 Pregnancies: 7, Para 5, Ab 1 Height: 63 in Weight: 148 lb LMP: 12/10/2020 GA by LMP: 31w1d GA by Base: 31w1d JEREMIE: 09/16/2021 GA Selected: 31w1d (From [facility]) JEREMIE: 09/16/2021 Referring MD: Jagdish Dash MD Oil Operator: Breanna Dueñas RDMS CPT4: 72629 BMI: 26.21 Hist/Ind: COVID+ on 04/27/21 AMA, [...] <Electronic Signature> 07/16/2021 11:34am Katarzyna Bojorquez MD [facility] ORDERABLES * BIOPHYSICAL PROFILE WO NST (07/09/2021 10:34 AM GRAIN UNLOADER MACHINE) Only the most recent of2 resultswithin the time period is included. Anatomical Region Laterality Modality Other 07/09/2021 10:3 4 AM GRAIN UNLOADER MACHINE Narrative 07/09/2021 12:25 PM GRAIN UNLOADER MACHINE [facility] PHONE: FAX: Radha. Name: RIGOBERTO GLYNN. No: [id number] Study Date: 07/09/2021 10:34am , Age: 04 1985, 35 Pregnancies: 7, Para 5, Ab 1 Height: 63 in Weight: 148 lb LMP: 12/10/2020 GA by LMP: 30w1d GA by Base: 30w1d JEREMIE: 09/16/2021 GA by US: 30w2d JEREMIE: 09/15/2021 GA Selected: 30w1d (LMP) JEREMIE: 09/16/2021 Referring MD: Jagdish Dash MD Oil Operator: Breanna Dueñas RDMS CPT4: 07505,22370 BMI: 26.21 Hist/Ind: COVID+ on 04/27/21 AMA, [...] ----- ---- ------- BPD 7.6 cm 30w3d (53v4x-32a5v) Hadl BPD 50% FL/BPD 0.76 (0.71 - 0.87) HC 28.3 cm 31w0d (10q0f-61h2l) Hadl HC 40% FL/AC 0.21 (0.20 - 0.24) AC 27.0 cm 31w1d (68s0d-67n9z) Hadl AC 75% HC/AC 1.05 (0.97 - 1.16) FL 5.8 cm 30w2d (51i1m-69p2o) Hadl FL 42% CI 0.75 (0.70 - 0.86) GA for sonogram 30w2d (64b5p-45m8x) Weight Estimate: based on (BPD,HC,AC,FL) [place] Weight: [...] <Electronic Signature> 07/09/2021 12:26pm Katarzyna Bojorquez MD [facility] ORDERABLES * (ABNORMAL) URINALYSIS W/MICROSCOPIC NO CULTURE (05/29/2021 12:54 PM GRAIN UNLOADER MACHINE) Color UA YELLOW YELLOW [facility] Appearance CLEAR CLEAR [facility] Specific [place] UA 1.025 1.001 - 1.035 [facility] pH [...] SEEN /LPF [facility] Comment: Test Performed at: [facility] [place] [address] [place] [address] CASSIUS RACHEL DO,MPH 05/29/2021 12:5 4 PM GRAIN UNLOADER MACHINE 05/29/2021 12:56 PM GRAIN UNLOADER MACHINE Ella Perkins EMPLOYMENT INTERVIEWER-PAPER BAG MAKING MACHINIST LAB - URINALYSI S ORDERABLES [address] [address] * (ABNORMAL) CULTURE URINE (05/29/2021 12:54 PM GRAIN UNLOADER MACHINE) Culture (A) [facility] Comment: CULTURE, URINE, ROUTINE Micro Number: [id number] Test Status: Final Specimen Source: Urine Specimen [...] No further testing performed. Test Performed at: [facility] [address] MAYDA ANGELES MD 05/29/2021 12:5 4 PM GRAIN UNLOADER MACHINE 05/29/2021 12:56 PM GRAIN UNLOADER MACHINE Ella Gregorio EMPLOYMENT INTERVIEWER-PAPER BAG MAKING MACHINIST LAB - MICROBIOL OGY ORDERABLES [facility] [address] [place] [address] * CULTURE AEROBIC (03/09/2014 5:26 PM CDT) Culture Aerobic GROWTH OF NORMAL UROGENITAL/ SKIN [facility] Gram Stain [facility] Comment:QNS for Gram stain - 1 swab only Cervix 03/09/2014 5:26 PM CDT 03/09/2014 9:55 PM CDT Narrative [facility] - 03/12/2014 1:20 PM CDT StefanSpecimen#[id number] Stefan Loc/Rm/Bed: ED// Historical Provider MD LAB - MICROBIOLOG Y ORDERABLES [facility] [address] [place] [address] * LAB RESULTS ORDER (03/10/2012 6:13 AM [...] MD LAB - POINT OF CARE ORDERABLES [facility] [place] [address] * SONOGRAM - TRANSVAGINAL (10/28/2011 7:52 AM CDT) Anatomical Region Laterality Modality Other 10/28/2011 7:52 AM CDT Narrative 11/07/2011 11:06 AM CDT [facility] PHONE: FAX: Radha. Name: RIGOBERTO GLYNN Radha. No: [id number] Study Date: 10/28/2011 7:52am , Age: 04 1985, 26 Pregnancies: 4, Para 2, Ab 1 LMP: Unknown GA by 1st: 28w5d GA by US: 28w1d GA Selected: 28w5d (From Known E) JEREMIE: 01/15/2012 Referring MD: REIC Oil Operator: Tammy Ogden RDMS Hist/Ind: Prior SAB, Incompetent Cervix MEASUREMENTS & AGE GROWTH EVALUATION Measurement GA Range Srce %for GA Ratios ----- ---- ------- BPD 6.7 cm 27w1d (09n6f-47j6y) Hadl BPD 18% FL/BPD 0.81 (0.71 - 0.87) HC 25.2 cm 27w3d (46x0o-67f2n) Hadl HC 21% FL/AC 0.22 (0.20 - 0.24) AC 25.0 cm 29w2d (34v6s-77n8d) Hadl AC 61% HC/AC 1.01 (0.99 - 1.18) FL 5.5 cm 28w6d (97k5m-73y7f) Hadl FL 54% CI 0.73 (0.70 - 0.86) HL 4.8 cm 28w1d (15n7p-71d9i) Michel HL 40% GA for sonogram 28w1d (07z9m-54v7l) Weight Estimate: based on (HL,BPD,HC,AC,FL) Avg Weight: 1284 gm (1643-8438) Hadlo : 2lbs, 13oz Normal: 1264 gm [...] <Electronic Signature> 11/07/2011 11:06am Ewelina Navarro MD [facility] ORDERABLES * RPR (10/20/2011 11:05 AM CDT) Pathologist [facility] RPR Non-Reacti ve Non Reacti [facility] Blood specimen (specimen) BLOOD SPECIMEN / Unknown 10/20/2011 11:05 AM CDT 10/20/2011 11:37 AM CDT Javan Martinez MD LAB - CHEMISTRY [facility] Performing Organization Address [facility] Co de Phone Number [facility] [address] [place] [address] * RUBELLA ANTIBODY IGG (10/20/2011 11:05 AM CDT) [facility] Rubella Antibody 224.3 SEE BELOW IU/ml [facility] Comment: =>10.0 Positive-Immune 5.0-9.9 Suggest Repeat Testing <5.0 Negative-Nonimmune BLOOD SPECIMEN / Unknown 10/20/2011 11:05 AM CDT 10/20/2011 12:21 PM CDT Ericka Alcantara MD LAB - SEROLOGY [facility] Performing Organization Address City/[facility]/ZIP Co de Phone Number [facility] [address] [place] [address] * (ABNORMAL) CBC W AUTO DIFFERENTIAL (10/20/2011 11:05 AM CDT) [facility] WBC 7.4 4.0 - 10.0 K/CUMM [facility] RBC 3.62(L) 3.80 - 5.80 M/CUMM [facility] Hemoglobin 11.2(L) 12.0 - 16.0 gm/dL [facility] Hematocrit 33.6(L) 37.0 - 47.0 % [facility] MCV 92.8 80.0 - 100.0 fl [facility] MCH 30.9 26.0 - 34.0 pg [facility] MCHC 33.3 31.0 - 37.0 gm/dL [facility] Platelet Count 151 150 - 400 K/CUMM [facility] RDW 13.6 11.5 - 14.5 % [facility] Granulocytes % 73.8(H) 50 - 70 % [facility] Lymphocytes % 19.1(L) 20 - 40 % [facility] Monocytes % 6.1 0 - 12 % [facility] Eosinophils % 0.5 0 - 5 % [facility] Basophils % 0.1 0 - 2 % [facility] Granulocytes Absolute 5.45 2.00 - 7.00 x1000/cmm [facility] Lymphocytes Absolute 1.41 0.80 - 4.00 x1000/cmm [facility] Monocytes Absolute 0.45 0.00 - 1.20 x1000/cmm [facility] Eosinophils Absolute 0.04 0.00 - 0.50 x1000/cmm [facility] Basophils Absolute 0.01 0.00 - 0.20 x1000/cmm [facility] Blood specimen (specimen) BLOOD SPECIMEN / Unknown 10/20/2011 11:05 AM CDT 10/20/2011 11:37 AM CDT Javan Martinez MD LAB - HEMATOLOGY ORD ERABLES Performing Organization Address City/[facility] Co de Phone Number [facility] [address] [place] [address] * HEPATITIS B SURFACE ANTIGEN (10/20/2011 11:05 AM CDT) Hepatitis B Virus Surface Antigen Nonreactive Nonreactiv [facility] Blood specimen (specimen) BLOOD SPECIMEN / Unknown 10/20/2011 11:05 AM CDT 10/20/2011 12:21 PM CDT Ericka Alcantara MD LAB - CHEMISTRY ORD ERABLES Performing Organization Address [facility] Co de Phone Number [facility] [address] [place] [address] * GLUCOSE CHALLENGE (10/20/2011 11:05 AM CDT) Glucose Challenge 98 mg/dl [facility] Glucose Challenge Time 1105 [facility] BLOOD SPECIMEN / Unknown 10/20/2011 11:05 AM CDT 10/20/2011 11:37 AM CDT Javan Martinez MD LAB - CHEMISTRY [facility] Organization Address City/State/ZIP Co de Phone Number [facility] [address] [place] [address] Care Teams Paraplanner Relationship Specialty Start Date End Date Ignacio Campos MD [address] [place] [address] PCP - General 10/06/11
--- OUTSIDE RECORDS SUMMARY | 2024-08-13 10:06 | XMS_ITS | Referral Summary ---
Author Organization [facility] Address [address] [place] [address] Care Team Providers Care Coating Operator Name Role Phone Ignacio Campos MD Primary Care Provider [phone] Source Comments [facility],non-owned Affiliates and Associated Physician Practices is amultiple site organization consisting of ambulatory clinics and hospital sitesin [place], [place] and [place]. This disclosure is being madepursuant to the Care Everywhere program and may not contain all information available regarding this patient. Last updated 18.[facility] Allergies No known active allergies Medications * [...] 04/17/2021 Assessment & Plan (04/17/2021 12:45 PM POTATO SORTER): The obstetric risks of advanced maternal age [...] antepartum Assessment & Plan (04/17/2021 12:50 PM POTATO SORTER): We discussed the patients choices regarding elective [...] your office would like the support of [facility] at delivery for TOLAC please let us know and we can facilitate delivery at [facility] Former tobacco use 04/17/2021 Assessment & Plan (04/17/2021 12:54 PM POTATO SORTER): Tobacco is associated with an increased risk of low weight, abruptio placenta, delivery and sudden infant syndrome. Was a risk factor in her previous delivery[ies]. 1. Would benefit from --discuss at next visit History of delivery, currently 10/06/2011 Assessment & Plan (04/17/2021 12:52 PM POTATO SORTER): We discussed some of the previous risk [...] been 17 OH PC supplementation. Administration of 99-sdgeria-bpsxdyqnxtwp caproate (17-OHPC) weekly, starting from 16-18 weeks to 36 weeks has shown to reduce the risk of premature delivery. 17-OHPC has been found to decrease the risk of delivery at 37, 35, and 32 weeks is high risk patients. The mcfp data on the impact of progesterone exposure [...] warrants in person evaluation by the primary web operations specialist, with treatment as indicated--even treatment of bacterial vaginosis Insomnia Assessment & Plan (04/17/2021 12:56 PM POTATO SORTER): Was previously prescribed hydroxyzine for sleep help. Concerned about taking medication during . Has a counselor through [employer] At risk for mood deterioration. Recommendations 1. Talk to counselor monthly 2. IF mood deterioration may benefit from consultation with Psychiatrist and Clinical Pharmacist for medication recommendations History of placental abruption Assessment & Plan (04/17/2021 1:46 PM POTATO SORTER): Recommendations 1. Serial growth 2. Weekly BPP [...] 74.8 kg (165 lb) 05/29/2021 10:31 AM POTATO SORTER Height 160 cm (5' 3 ) 10/06/2011 8:00 AM CDT Body Mass Index 29.23 10/06/2011 8:00 AM CDT Plan of Treatment Not on file Procedures Procedure Name Priority Date/Time Associated Diagnosis Comments GLUCOSE CHALLENGE Today 10/20/2011 11: 05 AM CDT from Last 3 Months or Most Recently Relevant to Health Maintenance Results * GLUCOSE CHALLENGE (10/20/2011 11:05 AM CDT) Glucose Challenge 98 mg/dl [facility] Glucose Challenge Time 1105 [facility] BLOOD SPECIMEN / Unknown 10/20/2011 11:05 AM CDT 10/20/2011 11:37 AM CDT Javan Martinez MD LAB - CHEMISTRY [place] [address] [place] [address] from Last 3 Months or Most Recently Relevant to Health Maintenance Care Teams Coating Operator Relationship Specialty Start Date End Date Ignacio Campos MD [address] [address] PCP - General 10/06/11
--- NOTE | 2024-08-13 10:47 | ED.FEMALEGU ---
HPI - Female Genitourinary General Chief complaint: Vaginal Bleeding Stated complaint: ovary pain, heavy vaginal bleeding Time Seen by Provider: 08/13/24 10:01 Source: patient, RN notes reviewed and old records reviewed Mode of arrival: ambulatory Limitations: no limitations History of Present Illness HPI Narrative: This is a 38 old female who presents for evaluation of abnormal vaginal bleeding. She developed vaginal spotting yesterday and she developed heavy bleeding today. She reports 3 years old she had similar symptoms and she was told she had thickened endometrium but no cancer. She reports having procedure done and she was started on explanon. She had not had a period until 1 month ago. She reports 1 month ago she had intermittent bleeding but today it is worse. She states she has periods of lower abdominal burning pain and then she will past clots. She denies heavy bleeding currently. She has not taken anything for pain. She denies fever, chills, nausea, vomiting back pain. She states she went to ER 1 month ago for yellow stool and she was told she has fatty liver. She has changed her diet and she is scheduled to see GI. She denies melena, pale stool or bloody stool. She has not taken anything for pain. Related Data Home Medications ?Medication ?Instructions ?Recorded ?Confirmed ?Last Taken ?Type etonogestrel 68 mg subdermal 1 implant subdermal ONCE 12/30/22 10/21/23 Unknown History implant (Nexplanon) fluoxetine 10 mg capsule 10 mg PO 04/01/23 10/21/23 Unknown History Allergies Allergy/AdvReac Type Severity Reaction Status Date / Time No Known Allergies Allergy Verified 08/13/24 08:57 Review of Systems Review of Systems: All systems reviewed & are unremarkable except as noted in HPI and below Gastrointestinal: Gastrointestinal: Reports constipation Genitourinary: Genitourinary: Reports abnormal vaginal bleeding [facility] Past Medical History Medical History Encounter for surveillance of other contraceptives PTSD (post-traumatic stress disorder) Kidney stones Kidney disease Depression Anxiety Surgical History Surgical History H/O gynecological procedure hscope D&C Delivery by section (09/10/21) rpt c/s History of (10/25/14) primary c/s Family History Family History Father Diabetes mellitus Mother Cerebrovascular accident Father Hypertension Other No active medical problems Social History Social History Smoking status: Former smoker Tobacco type: cigarettes Second hand tobacco smoke exposure: No Additional smoking assessment comments: STATES 6 GIGS/DAY OFF/ON 10YRS QUIT 2014 Alcohol intake: never Substance use: current Substance use type: marijuana Last use: END October 2022 Lack of Transportation: No Lack of Food: Never True Current Housing: I Have Housing Concerned About Future Housing: No Difficulty Paying Gas/Electric Bills: No Difficulty Paying for Meds: No Currently Unemployed: No Education: High School Diploma/GED Difficulty w/ Childcare or Family Care: No Living arrangements: with family Additional living arrangements comments: LIVES WITH SIGNIFICANT OTHER & CHILDREN Gender identity (if verbalized by the patient): Female Sexual Orientation (if Verbalized by the Patient): Straight or Heterosexual Spiritual care concerns: No Exam Const: General: healthy appearing Nutritional Appearance: well nourished Orientation/consciousness: patient oriented x3 Limitations: no limitations HENMT: Head: normal to inspection Eyes: EOM: EOMs intact bilaterally Chest: Chest palpation & inspection: normal inspection of the chest Resp: Effort & Inspection: normal respiratory effort Auscultation: clear to auscultation bilaterally Cardio: Rate: regular rate Rhythm: regular rhythm Heart sounds: no murmurs GI: GI Palp: Yes Soft to palpation, No Tenderness to palpation present (GI), No Guarding due to palpation present (GI) and No Rigid due to palpation Auscultation: normal bowel sounds : Speculum Exam - Vagina: normal appearance of the vagina and vaginal bleeding (scant red blood at cervix. no blood clots) Speculum Exam - Cervix: Cervical os closed Bimanual exam- vagina & uterus: no cervical motion tenderness Bimanual Exam- Adnexa, other: adnexal mass Skin: General skin exam: normal color Rashes: no rashes Wounds: no wounds Neuro: General: patient oriented x3 and moves all extremities Extrem: General: normal to inspection Psych: Appearance: grossly normal Mental Status: mental status grossly normal Affect: normal affect Attitude: cooperative Course Reevaluation(s) Reevaluation #1: I have discussed with patient that labs are unremarkable except for elevated LFTS. no anemia. She will call Dr. Ware for follow up for possible ovarian cyst. Date: 08/13/24 Time: 10:58 Vital Signs Vital signs: Vital Signs Temperature 98.2 F 08/13/24 08:55 Pulse Rate 85 08/13/24 08:55 Respiratory Rate 16 08/13/24 08:55 Blood Pressure 131/79 08/13/24 08:55 Pulse Oximetry 98 08/13/24 08:55 Oxygen Delivery Room Air 08/13/24 08:55 Temperature 98.2 F 08/13/24 08:55 Pulse Rate 85 08/13/24 08:55 Respiratory Rate 16 08/13/24 08:55 Blood Pressure 131/79 08/13/24 08:55 Pulse Oximetry 98 08/13/24 08:55 Oxygen Delivery Room Air 08/13/24 08:55 MDM - Female Genitourinary Differential Diagnosis Differential diagnosis: Likely ovarian cyst, ruptured ovarian cyst, dysmenorrhea and other (anemia) Medical Records Attestation: I reviewed the patient's medical records. Lab Data Attestation: I reviewed the patient's lab results. 08/13/24 09:05 08/13/24 09:05 Labs: Lab Results 08/13/24 08/13/24 Range/Units 09:05 09:12 WBC 5.7 (4.5-10.0) K/mm3 RBC 4.79 (4.2-5.4) M/mm3 Hgb 14.8 (12.0-15.0) g/dL Hct 44.2 (37.0-47.0) % MCV 92.3 (80-100) fl MCH 30.9 (26-34) pg MCHC 33.5 (32-36) g/dl RDW 13.4 (11.5-14.5) % Plt Count 179 (150-375) k/mm3 MPV 10.8 H (7.4-10.4) fl Immature Gran % (Auto) 0.4 (0-0.5) % Neut % (Auto) 67.4 (45.5-73.1) % Lymph % (Auto) 23.9 (18.3-44.2) % Jay % (Auto) 7.1 (2.6-8.5) % Eos % (Auto) 0.7 (0-4.4) % Baso % (Auto) 0.5 (0.2-1.2) % Lymph # (Auto) 1.35 (0.9-3.2) K/mm3 Jay # (Auto) 0.4 (0.1-0.6) K/mm3 Eos # (Auto) 0.0 (0-0.3) K/mm3 Baso # (Auto) 0.0 (0.0-0.1) K/mm3 Abs Immat Gran (auto) 0.02 (0.00-0.031) K/mm3 Absolute Neuts (auto) 3.8 (1.3-6.7) K/mm3 Absolute Nucleated RBC 0.000 (0.0-0.012) K/mm3 Nucleated RBC % 0.0 (0.0-0.2) % Sodium 139 (137-145) mmol/L Potassium 3.5 (3.4-5.0) mmol/L Chloride 100 (98-107) mmol/L Carbon Dioxide 25 (22-30) mmol/L Anion Gap 14 H (4-12) mmol/L BUN 8 (7-17) mg/dL Creatinine 0.73 (0.7-1.0) mg/dL Estim Creat Clear Calc Not Reportable Estimated GFR > 60 (59 - ) Glucose 89 (65-110) mg/dL Calcium 9.4 (8.4-10.2) mg/dL Total Bilirubin 0.7 (0.2-1.3) mg/dL AST 41 H (14-36) U/L ALT 75 H (6-35) U/L Alkaline Phosphatase 72 (38-126) U/L Total Protein 8.0 (6.3-8.2) g/dL Albumin 4.8 (3.5-5.1) g/dL Lipase 50 (23-300) U/L Urine Color Yellow (Yellow) Urine Appearance Clear (Clear) Urine pH 6.5 (5.0-9.0) Ur Specific [place] 1.003 (1.001-1.035) Urine Protein Negative (Negative) mg/dL Urine Glucose (UA) Negative (Negative) mg/dL Urine Ketones 1+ H (Negative) mg/dL Ur Blood (Man) 2+ H (Negative) Urine Nitrate Negative (Negative) Urine Bilirubin Negative (Negative) Urine Urobilinogen 0.2 (<2.0) mg/dL Leukocyte Esterase Rfl Negative (Negative) TOMAS/UL Urine RBC 3-5 H (0-2) /hpf Urine WBC 0-5 (0-3) /hpf Ur Squamous Epith Cells None seen (Few) /hpf Urine Bacteria None seen /hpf Urine Casts 0-2 POC Urine HCG, Qual Negative (Negative) Discharge Plan Discharge Clinical Impression: Abnormal vaginal bleeding Patient Disposition: Home, Self-Care Condition: Stable Instructions: Antibiotic Form, Dysmenorrhea (ED), Menorrhagia (ED) Patient Language: Montserratian Prescriptions: No Action Nexplanon 68 mg implant 1 implant subdermal ONCE Rx Instructions: as a single dose fluoxetine 10 mg capsule 10 mg PO Follow-up/Referrals: Abimael Ware MD [Physician] - [place],Ewelina Lenz NP [Primary Care Provider] -
== END 2024-08-13 11:11 | disposition home or self-care (01) ==
PROVIDERS: Emergency Medicine; Emergency Provider General Practice; PCP Nurse Practitioner Family
DX: N93.9 Abnormal uterine and vaginal bleeding, unspecified (principal); F41.8 Other specified anxiety disorders; F43.10 Post-traumatic stress disorder, unspecified; Z87.891 Personal history of nicotine dependence
CPT/HCPCS: 36415; 80053; 81001; 81025; 83690; 85025; 99284